=== PATIENT | female | born 1960 | race Caucasian/White ===

== ENCOUNTER → 2017-05-20 | Outpatient (CLI) | payer OTHER ==
--- NOTE | 2017-05-24 09:49 | MM ---
Reason for exam: screening (asymptomatic). Last mammogram was performed 1 year and 2 months ago. History: Patient is postmenopausal. Benign ultrasound-guided core biopsy of the left breast, September 27, 2002. Physical Findings: A clinical breast exam by your physician is recommended on an annual basis and results should be correlated with mammographic findings. MG 3D Screening Mammo W/Cad Bilateral CC and MLO view(s) were taken. Prior study comparison: March 24, 2016, bilateral MG 3d screening mammo w/cad. October 24, 2014, bilateral MG screening mammo w CAD. There are scattered fibroglandular densities. No significant changes when compared with prior studies. ASSESSMENT: Benign, BI-RAD 2 RECOMMENDATION: Routine screening mammogram of both breasts in 1 year.
== END | disposition home or self-care (01) ==
LOC: RADMAMWWP 13:02
PROVIDERS: ATTEND Obstetrics & Gynecology
DX: Z12.31 Encounter for screening mammogram for malignant neoplasm of breast (principal)
CPT/HCPCS: 77063; G0202

== ENCOUNTER → 2019-12-25 | Outpatient (CLI) | payer OTHER ==
[2019-12-25 12:15] LABS: Appearance,Urine Clear (Clear); Bacteria,Urine Occasional /hpf; Bilirubin,Urine Negative (Negative); Blood,Urine Negative (Negative); Color,Urine Light Yellow; Glucose,Urine (UA) Negative (Negative); Ketones,Urine Negative (Negative); Leukocyte Esterase,Urine Trace (Negative); Nitrite,Urine Negative (Negative); PH, Urine 6.5 (5.0-8.0); Protein,Urine Negative (Negative); RBC,Urine 3 /hpf (0-5); Specific Gravity,Urine 1.007 (1.001-1.035); Squamous Epithelial Cell,Urine <1 /hpf (0-4); Urobilinogen,Urine <2.0 mg/dL (<2.0); WBC,Urine 1 /hpf (0-5)
[2019-12-25 12:16] LABS: HCT 37.7 % (34.0-46.0); HGB 12.4 gm/dL (11.4-16.0); MCH 33.7 pg (25.0-35.0); MCHC 32.8 g/dL (31.0-37.0); MCV 102.5 fL (80.0-100.0); Macrocytosis Slight; Mean Platelet Volume 7.2; Platelet Count 325 k/uL (150-450); RBC 3.68 m/uL (3.80-5.40); RDW 12.5 % (11.5-15.5); WBC 5.5 k/uL (3.8-10.6)
[2019-12-25 12:19] LABS: ALT 11 U/L (4-34); AST 21 U/L (14-36); African American GFR (CKD) >90 (>60 ml/min/1.73 sqM); Albumin 4.4 g/dL (3.5-5.0); Alkaline Phosphatase 57 U/L (38-126); Anion Gap 8 mmol/L; Blood Urea Nitrogen 9 mg/dL (7-17); Calcium 9.3 mg/dL (8.4-10.2); Carbon Dioxide 25 mmol/L (22-30); Chloride 108 mmol/L (98-107); Glucose 98 mg/dL (74-99); INR 1.1 (<1.2); Non-African American GFR(CKD) >90 (>60 ml/min/1.73 sqM); Partial Thromboplastin Time 22.7 sec (22.0-30.0); Potassium 4.2 mmol/L (3.5-5.1); Prothrombin Time 11.2 sec (9.0-12.0); Sodium 141 mmol/L (137-145); Total Bilirubin 0.4 mg/dL (0.2-1.3); Total Protein 6.6 g/dL (6.3-8.2)
== END | disposition home or self-care (01) ==
LOC: LABPAT 11:27
PROVIDERS: ATTEND Orthopaedic Surgery
DX: Z01.818 Encounter for other preprocedural examination (principal); Z01.812 Encounter for preprocedural laboratory examination
CPT/HCPCS: 36415; 80053; 81001; 85027; 85610; 85730; 87070

== ENCOUNTER 2020-01-02 11:05 | Day surgery (SDC) | payer OTHER ==
[2019-12-29 08:47] VITALS: BMI 17.8
[~2020-01-02 11:05] MED LIST: ACETAMINOPHEN TAB 500 MG TAB PO ONE; DEXAMETHASONE SOD PHOSPHATE 10 MG/ML 1 ML VIAL IV ONE; GABAPENTIN 300 MG CAP PO ONE; HYDROcodone/APAP 5-325MG 1 EACH TAB PO PRN; HYDROmorphone 0.5 MG/0.5 ML SYRINGE IVP PRN; HYDROmorphone 1 MG/ML 1 ML SYRINGE IVP PRN; LIDOCAINE 1% (10MG/ML) FOR IV START INTRADERMA PRN; MAGNESIUM HYDROXIDE 2,400 MG/10 ML CUP PO PRN; MELOXICAM 7.5 MG TAB PO ONE; NALOXONE 0.4 MG/ML 1 ML VIAL IV PRN; ONDANSETRON 4 MG/2 ML VIAL IVP ONE; ONDANSETRON 4 MG/2 ML VIAL IVP PRN; TRANEXAMIC ACID 1,000 MG in SODIUM CHLORIDE 0.9% 100 ML IVPB ONE; diazePAM 5 MG TAB PO PRN; hydrOXYzine pamoate 25 MG CAP PO PRN
[2020-01-02] MEDS ORDERED: ACETAMINOPHEN TAB 500 MG TAB ONE (11:14)
[2020-01-02] MEDS ORDERED: ONDANSETRON 4 MG/2 ML VIAL ONE (11:14)
[2020-01-02] MEDS: LACTATED RINGERS 1,000 ML IV SCH (11:31)
[2020-01-02] MEDS ORDERED: MIDAZOLAM 2 MG/2 ML VIAL ONE (12:47)
[2020-01-02] MEDS ORDERED: PROPOFOL 10 MG/ML 20 ML VIAL IV ONE (12:47)
[2020-01-02] MEDS ORDERED: fentaNYL (PF) 50 MCG/ML 2 ML AMP ONE (12:47)
[2020-01-02] MEDS ORDERED: SODIUM CHLORIDE 0.9% IRRIG 1,000 ML BTL IRRIGATION ONE (12:47)
[2020-01-02] MEDS ORDERED: SODIUM CHLORIDE 0.9% 100 ML BAG ONE (12:47)
[2020-01-02] MEDS ORDERED: TRANEXAMIC ACID 1,000 MG/10 ML VIAL ONE (12:47)
[2020-01-02] MEDS ORDERED: HEPARIN SODIUM,PORCINE 10,000 UNIT/ML 1 ML VIAL ONE (12:47)
[2020-01-02] MEDS: ROPIVACAINE 246.25 MG, EPINEPHrine 0.5 MG, KETOROLAC 30 MG, cloNIDine HCL/PF 80 MCG, WA... MISCELLANE ONE ×10 (13:28→13:55)
--- NOTE | 2020-01-02 14:21 | P.OP ---
Date of Procedure: 01/02/20 Preoperative Diagnosis: Severe osteoarthritis left hip Postoperative Diagnosis: Severe osteoarthritis left hip Procedure(s) Performed: Left total hip arthroplasty with a direct anterior approach Implants: Gay and nephew Polarstem size 3 standard Gay & Nephew R3, 3 hole acetabular shell, 48 mm Gay & Nephew reflection 6.5 mm cancellus screw, 20 mm, 15 mm Gay & Nephew R3, XLPE 20 acetabular liner Gay & Nephew Oxinium femoral head 32 m, +0 All components were press-fit. The articulation is Oxinium on polyethylene. Anesthesia: spinal Surgeon: Bimal Saldaña Kinesiology Professor #1: Lulu Harris Estimated Blood Loss (ml): 50 Pathology: other (Femoral head) Condition: stable Disposition: PACU Indications for Procedure: After failure of conservative treatment we discussed the surgical and nonsurgical treatment options at length. Patient wishes to proceed with a total hip arthroplasty with a direct anterior approach. Complications specific to this procedure were discussed at length, including but not limited to infection, leg length discrepancy, dislocation, and nerve injury. Covid-19 was also discussed at length with the patient, and they are aware of the current policies and procedures. The patient was given the option of delaying surgery, but they elect to proceed knowing these risks. Patient is aware of all these complications and informed consent was obtained Operative Findings: The operative findings are consistent with severe osteoarthritis of the left hip Description of Procedure: Patient was seen and evaluated in the preoperative area, consent was reviewed, and the surgical site was marked with a skin marker. Patient was then brought to the operating room and given prophylactic antibiotics intravenously. 1 g of Tranexamic acid was also given. A spinal anesthetic was administered by the anesthesia department. The patient was then placed on the Mattaponi table with the bony prominences well-padded. The hip area was then prepped and draped in usual sterile fashion. A universal timeout was then performed, which confirmed the patient's name, surgical site, ALLERGIES, and procedure being performed. Next the incision site was located at 1 cm distal and 1 cm lateral to the anterior superior iliac spine. The skin and subcutaneous tissues were sharply incised. Incision was carefully dissected down to the fascia overlying the tensor fascia quinn muscle. This fascia was then incised in line with the incision. Next, using blunt finger dissection, the tensor fascia quinn muscle was dissected off its investing fascia. The muscle was then carefully retracted laterally with a cobra retractor over the lateral neck of the femur. Next, the circumflex vessels were identified and cauterized using the AquaMantis device. The anterior hip capsule was then exposed. The capsule was then opened and an inverted T fashion. Cobra retractors were then placed intracapsularly. The proximal femur was then visualized. The femoral neck was then osteotomized appropriate level above the lesser trochanter. Small amount of traction was placed with the Mattaponi table. A small wedge of bone was then removed from the remaining femoral head. Next, using a corkscrew femoral head was easily removed from the acetabulum. On gross visual inspection, the femoral head had complete loss of articular cartilage in multiple periarticular osteophytes. Attention was then turned to the acetabulum. the acetabulum was exposed and any remaining labrum was excised. Sequential reaming of the acetabulum was performed using fluoroscopic guidance. When the appropriate size was reached, a trial was then placed. The position and fit of the trial was checked with fluoroscopy. The trial was then removed. Then, using fluoroscopic guidance, the final implant was impacted at 20 of anteversion and 40 of abduction, and fully seated in the acetabulum. 2 screws were then placed in the acetabulum. Again fluoroscopy was used to check position of the screws. Next, the liner was then impacted, with a 20 elevated liner located in the anterior superior quadrant. Component locking was confirmed. Attention was then directed to the femur. With the aid of the Mattaponi table, the femur was externally rotated to approximately 130, extended, and abducted under the opposite leg. A side hook was then placed under the proximal femur, and the side hook elevator was used to elevate the proximal femur. Retractors were then placed. A capsular release was performed, as well as a release of the conjoined tendon, which afforded excellent visualization of the proximal femur. Next, a box osteotome was used to lateralize the proximal femur. A merchandise buyer was then used to locate the femoral canal. Sequential broaching was then performed with appropriate size which afforded excellent fixation in the proximal femur. A trial was then placed with appropriate head and neck, and the hip was gently reduced with the aid of the Mattaponi table. Fluoroscopy was then used to check position of the components, as well as to ensure equal leg lengths. The hip was then gently dislocated and the trials were then removed. Final implants were then impacted and the hip was again reduced. Final fluoroscopic x-rays confirmed that the components were in anatomic position, as well as equal leg lengths. The hip was also taken through range of motion, and found to be stable. The hip was then copiously irrigated with antibiotic solution with pulsatile lavage. The hip was then irrigated with Irrisept solution. The soft tissues were then injected with a ropivacaine solution, which consisted of 246.25 mg of ropivacaine, 0.5 mg of epinephrine, 30 mg of Toradol, 80 g of clonidine, and 48.45 mL of sterile water, for a total of 100 mL of fluid injected. A second dose of 1 g of Tranexamic acid was also given. the fascia was then closed with 2-0 strata fix suture. The subcutaneous tissue was closed with 3-0 Vicryl. The subcuticular tissue was closed with 3-0 strata fix suture. The skin was then closed with Dermabond glue and a sterile silver dressing. The patient was then transferred to the recovery room in stable condition. The assistant county attorney MARCELLE Verdin was required due to the complexity of surgery, and the need for skilled assistant oceanographer for positioning, draping, exposure, retraction, and closure of the wound.
--- NOTE | 2020-01-02 14:43 | FL ---
EXAMINATION TYPE: FL guidance operating room, XR Hip Limited LT DATE OF EXAM: 01/02/2020 COMPARISON: NONE HISTORY: Left hip arthroplasty TECHNIQUE: Fluoroscopy. FINDINGS: Fluoroscopic guidance was provided during procedure performed by Dr. Saldaña. A total of 35 seconds of fluoroscopic time was utilized during the procedure and 2 spot images was acquired. Pl ease see operative note for additional details. IMPRESSION: As Above.
--- NOTE | 2020-01-02 15:07 | XR ---
Limited left hip HISTORY: Status post left hip arthroplasty Single frontal view of the left hip Patient is status post left hip arthroplasty. There is anatomic alignment. Lucency is present in the soft tissues. IMPRESSION: Orthopedic follow-up.
[2020-01-02] MEDS: HYDROmorphone 0.5 MG/0.5 ML SYRINGE IVP PRN ×2 (15:30→15:39)
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
[2020-01-02] MEDS: HYDROcodone/APAP 5-325MG 1 EACH TAB PO PRN (19:23)
[2020-01-02] MEDS: SODIUM CHLORIDE 0.9% 1,000 ML IV SCH ×2 (20:50→21:03)
[2020-01-02] MEDS: ASPIRIN 325 MG TAB PO SCH (20:51)
[2020-01-02] MEDS ORDERED: SENNOSIDES-DOCUSATE SODIUM 1 EACH TAB PO SCH (21:00)
[2020-01-02] MEDS: NICOTINE 14MG/24HR PATCH TRANSDERM SCH (21:49)
[2020-01-03 01:13] VITALS: PULSE 76; TEMP 97.9
[2020-01-03] MEDS: HYDROcodone/APAP 5-325MG 1 EACH TAB PO PRN ×2 (01:28→07:32)
[2020-01-03 04:14] VITALS: RESP 16
[2020-01-03] MEDS: LACTATED RINGERS 1,000 ML IV SCH (06:02)
[2020-01-03] MEDS ORDERED: PANTOPRAZOLE 40 MG TABLET PO SCH (07:30)
[2020-01-03] MEDS: ASPIRIN 325 MG TAB PO SCH (07:34)
[2020-01-03 08:00] VITALS: BP 127/65
[2020-01-03 08:28] LABS: Basophils % (A) 0 %; Eosinophils # (A) 0.1 k/uL (0-0.7); Eosinophils % (A) 1 %; HCT 30.3 % (34.0-46.0); Lymphocytes # (A) 1.4 k/uL (1.0-4.8); Lymphocytes % (A) 14 %; MCH 33.6 pg (25.0-35.0); MCHC 32.2 g/dL (31.0-37.0); MCV 104.4 fL (80.0-100.0); Macrocytosis Slight; Mean Platelet Volume 6.9; Monocytes # (A) 0.5 k/uL (0-1.0); Monocytes % (A) 6 %; Neutrophils # (A) 7.4 k/uL (1.3-7.7); Neutrophils % (A) 78 %; Platelet Count 364 k/uL (150-450); RDW 12.8 % (11.5-15.5); WBC 9.5 k/uL (3.8-10.6)
[2020-01-03 08:32] LABS: HGB 9.8 gm/dL (11.4-16.0)
[2020-01-03] MEDS: NICOTINE 14MG/24HR PATCH TRANSDERM SCH (08:43)
[2020-01-03] MEDS ORDERED: amLODIPine 10 MG TAB PO SCH (09:00)
[2020-01-03] MEDS ORDERED: FENOFIBRATE 160 MG TAB PO SCH (09:00)
[2020-01-03] MEDS ORDERED: MELOXICAM 7.5 MG TAB PO SCH (09:00)
[2020-01-03] MEDS ORDERED: METOPROLOL SUCCINATE (ER) 100 MG TAB.ER.24H PO SCH (09:00)
[2020-01-03] MEDS ORDERED: ATORVASTATIN 10 MG TAB PO SCH (09:00)
--- NOTE | 2020-01-03 09:30 | P.DS ---
Providers Expected date of discharge: 01/03/20 Attending physician: Bimal Saldaña Consults: 01/02/20 06:55 Consult Physician Routine Consulting Provider: Antonietta Johansen Consult Reason/Comments: medical management Do you want consulting provider notified?: Yes Primary care physician: Mg Barger, DO - Discharge Diagnosis(es) (1) Osteoarthritis of left hip Current Visit: Yes Status: Acute (2) Status post total hip replacement, left Current Visit: Yes Status: Acute Hospital Course: This is a 59-year-old female with known history of degenerative arthritis of the left hip. The patient presents for evaluation. After discussion and consideration patient elects to proceed with total hip arthroplasty. The patient is seen preoperatively by Dr. Saldaña and medically cleared for surgery by their primary care physician. Patient is admitted to [facility] on 01/02/2020 for total hip arthroplasty. The procedures performed without complication or sequelae. The patient is doing well postoperatively. Labs and vital signs are stable on day of discharge. Patient does have some weakness in the left ankle and an AFO is ordered. Patient has been able to ambulate with physical therapy. On day of discharge patient's hip incision is healing well. There is minimal erythema. There is no drainage noted at this time. There is minimal soft tissue swelling to the hip and thigh. Patient has some weakness with dorsifl exion of the left ankle. Sensation is intact over the left foot and ankle. Patient is able to actively dorsiflex the toes of the left foot. Patient is able to actively plantarflex the left foot. Calf is soft and nontender to palpation. Neurovascular status to the left lower extremity is intact. Patient is discharged home in good condition. Opioid start talking form is reviewed and signed at patient bedside. Please see med rec for accurate list of home medications. Plan - Discharge Summary Discharge Rx Participant: Yes New Discharge Prescriptions: New Aspirin 325 mg PO BID #60 tab HYDROcodone/APAP 5-325MG [[place] 5-325] 1 - 2 tab PO Q6HR PRN #48 tab PRN Reason: Pain Sennosides [Senokot] 2 tab PO DAILY PRN #60 tablet PRN Reason: Constipation No Action Acetaminophen/Diphenhydramine [Tylenol PM 500-25mg] 1 tab PO HS PRN PRN Reason: Insomnia amLODIPine [Norvasc] 10 mg PO DAILY Atorvastatin [Lipitor] 10 mg PO DAILY Venlafaxine HCl [Effexor] 75 mg PO DAILY Metoprolol Succinate [Toprol XL] 100 mg PO DAILY Ibuprofen [Motrin] 800 mg PO Q8H PRN PRN Reason: Pain Potassium 595 mg PO DAILY Pantoprazole [Protonix] 40 mg PO DAILY Fenofibrate 150 mg PO DAILY Acetaminophen [Tylenol Arthritis] 650 mg PO DIRECTED PRN PRN Reason: Pain Discharge Medication List Acetaminophen [Tylenol Arthritis] 650 mg PO DIRECTED PRN 12/29/19 [History] Acetaminophen/Diphenhydramine [Tylenol PM 500-25mg] 1 tab PO HS PRN 12/29/19 [History] Atorvastatin [Lipitor] 10 mg PO DAILY 12/29/19 [History] Fenofibrate 150 mg PO DAILY 12/29/19 [History] Ibuprofen [Motrin] 800 mg PO Q8H PRN 12/29/19 [History] Metoprolol Succinate [Toprol XL] 100 mg PO DAILY 12/29/19 [History] Pantoprazole [Protonix] 40 mg PO DAILY 12/29/19 [History] Potassium 595 mg PO DAILY 12/29/19 [History] Venlafaxine HCl [Effexor] 75 mg PO DAILY 12/29/19 [History] amLODIPine [Norvasc] 10 mg PO DAILY 12/29/19 [History] Aspirin 325 mg PO BID #60 tab 01/03/20 [Rx] HYDROcodone/APAP 5-325MG [[place] 5-325] 1 - 2 tab PO Q6HR PRN #48 tab 01/03/20 [R x] Sennosides [Senokot] 2 tab PO DAILY PRN #60 tablet 01/03/20 [Rx] Follow up Appointment(s)/Referral(s): Bimal Saldaña DO [Doctor of Osteopathic Medicine] - 2 Weeks Activity/Diet/Wound Care/Special Instructions: Weightbearing as tolerated with walker. Leave dressing intact. Dressing may be removed by home care nurse or by patient in 10 days. May shower with dressing on. Recommend use of compression stockings daily until follow up to help prevent swelling and blood clots. May remove at night before sleeping. Please follow-up with [facility] in 2 weeks and call with any questions or concerns, . Discharge Disposition: HOME WITH HOME HEALTH SERVICES
--- NOTE | 2020-01-03 10:41 | P.PN ---
Subjective Progress Note Date: 01/03/20 Patient is doing well today. No acute events overnight. She is looking forward to be discharged home. Objective - Vital Signs Vital signs: Vital Signs Temp 97.9 F 01/03/20 07:00 Pulse 76 01/03/20 07:25 Resp 16 01/03/20 07:25 BP 127/65 01/03/20 07:00 Pulse Ox 95 01/03/20 07:00 Intake & Output 01/02/20 01/03/20 01/03/20 18:59 06:59 18:59 Intake Total 950 480 Output Total 53 Balance 897 480 Weight 47.174 kg Intake: IV 950 Intake, IV Titration 480 Amount Sodium Chloride 0.9% 1, 480 000 ml @ 60 mls/hr IV . [id number] ENEDINA Rx#:[id number] Output: Estimated Blood Loss 53 Other: Voiding Method Toilet Toilet # Voids 1 1 - Exam General: The patient is awake and alert, in no distress Eye: there is normal conjunctiva bilaterally. Neck: The neck is supple, there is no JVD. Cardiovascular: Normal S1-S2, no S3-S4, no murmurs. Respiratory: Lungs clear to auscultation bilaterally Gastrointestinal: Abdomen is soft, nontender Musculoskeletal: There is no pedal edema. Neurological:. Speech is normal. Skin: Skin is warm and dry - Labs CBC & Chem 7: 01/03/20 07:47 Labs: Abnormal Lab Results - Last 24 Hours (Table) 01/03/20 Range/Units 07:47 RBC 2.90 L (3.80-5.40) m/uL Hgb 9.8 L D (11.4-16.0) gm/dL Hct 30.3 L (34.0-46.0) % MCV 104.4 H (80.0-100.0) fL Assessment and Plan Assessment: Hypertension -Continue with home amlodipine Hyperlipidemia -Continue with home Lipitor dose Status post left total hip replacement -Management including pain control and DVT prophylaxis as per the surgical service
--- NOTE | 2020-01-03 10:57 | P.PN ---
Progress Note - Text This is a pleasant 59-year-old female past medical history significant for COPD hypertension and dyslipidemia. She underwent a Lexiscan stress test that was negative for ischemia with normal LV systolic function. She underwent elective left hip surgical repair yesterday. She is seen and examined sitting up in the chair in no acute distress. She has no symptoms of chest pain, shortness of breath, dizziness or palpitations. Blood pressure 127/65 heart rate 100 afebrile maintaining oxygen saturation on room air. She is being discharged home from an orthopedic standpoint today. Follow-up in the office with Dr. Muir and next regularly scheduled appointment.
== END 2020-01-03 12:01 | disposition home health service (06) ==
LOC: OR 11:05 → 4SSUR 15:37 → OR 01-03 12:01
PROVIDERS: ATTEND Orthopaedic Surgery
DX: M16.12 Unilateral primary osteoarthritis, left hip (principal); I10 Essential (primary) hypertension; J44.9 Chronic obstructive pulmonary disease, unspecified; E78.5 Hyperlipidemia, unspecified; K21.9 Gastro-esophageal reflux disease without esophagitis; E78.00 Pure hypercholesterolemia, unspecified; F17.210 Nicotine dependence, cigarettes, uncomplicated; Z87.19 Personal history of other diseases of the digestive system; Z80.8 Family history of malignant neoplasm of other organs or systems; Z79.1 Long term (current) use of non-steroidal anti-inflammatories (NSAID); Z79.899 Other long term (current) drug therapy
CPT/HCPCS: 97110; 97161; 97535; 97165; 86891; 86900; 86901; 85025; 86850; 88300; 73501 ×2; 27130; C1776; S4990 ×2; J0171; J1100; J0690 ×2; J2405; J1885; J1170 ×2; J2795; J0735

== ENCOUNTER 2020-01-31 19:31 | Observation (INO) | payer OTHER ==
[2020-01-31] MEDS: HYDROmorphone 0.5 MG/0.5 ML SYRINGE IVP STA (19:49)
[2020-01-31] MEDS ORDERED: NICOTINE 21MG/24HR PATCH TRANSDERM STA (19:52)
[2020-01-31] MEDS ORDERED: NALOXONE 0.4 MG/ML 1 ML VIAL IV PRN (20:13)
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
--- NOTE | 2020-01-31 20:24 | XR ---
EXAMINATION TYPE: XR Hip Limited LT DATE OF EXAM: 01/31/2020 COMPARISON: 01/02/2020 HISTORY: Pain, dislocation TECHNIQUE: AP left hip FINDINGS: The femoral component is dislocated from the acetabular component at the left hip. No acute fractures are evident. IMPRESSION: 1. Dislocation femoral prosthesis from the acetabular component.
[2020-01-31 21:07] LABS: Glucose 97 mg/dL (74-99); Potassium 3.3 mmol/L (3.5-5.1); Sodium 137 mmol/L (137-145)
[2020-01-31 21:08] LABS: ALT 9 U/L (4-34); AST 28 U/L (14-36); African American GFR (CKD) >90 (>60 ml/min/1.73 sqM); Albumin 3.7 g/dL (3.5-5.0); Alkaline Phosphatase 57 U/L (38-126); Anion Gap 7 mmol/L; Blood Urea Nitrogen 7 mg/dL (7-17); Calcium 9.3 mg/dL (8.4-10.2); Carbon Dioxide 23 mmol/L (22-30); Chloride 107 mmol/L (98-107); Non-African American GFR(CKD) >90 (>60 ml/min/1.73 sqM); Total Bilirubin 0.7 mg/dL (0.2-1.3)
[2020-01-31 21:09] LABS: Basophils % (A) 1 %; Eosinophils # (A) 0.2 k/uL (0-0.7); Eosinophils % (A) 3 %; HCT 34.5 % (34.0-46.0); HGB 10.9 gm/dL (11.4-16.0); Lymphocytes # (A) 1.5 k/uL (1.0-4.8); Lymphocytes % (A) 22 %; MCH 33.1 pg (25.0-35.0); MCHC 31.6 g/dL (31.0-37.0); MCV 104.9 fL (80.0-100.0); Macrocytosis Slight; Mean Platelet Volume 7.4; Monocytes # (A) 0.4 k/uL (0-1.0); Monocytes % (A) 6 %; Neutrophils # (A) 4.5 k/uL (1.3-7.7); Neutrophils % (A) 67 %; Platelet Count 494 k/uL (150-450); RBC 3.29 m/uL (3.80-5.40); RDW 13.2 % (11.5-15.5); WBC 6.7 k/uL (3.8-10.6)
[2020-01-31] MEDS: SODIUM CHLORIDE 0.9% 1,000 ML IV SCH ×2 (21:55→21:56)
[2020-01-31] MEDS ORDERED: POTASSIUM CHLORIDE ER 10 MEQ TAB.ER.PRT PO STA (22:00)
[2020-01-31] MEDS: HYDROmorphone 0.5 MG/0.5 ML SYRINGE IVP PRN (23:56)
[2020-02-01] MEDS: HYDROmorphone 0.5 MG/0.5 ML SYRINGE IVP PRN ×4 (03:01→11:46)
[2020-02-01] MEDS: SODIUM CHLORIDE 0.9% 1,000 ML IV SCH ×2 (08:18→17:02)
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
[2020-02-01] MEDS ORDERED: METOPROLOL SUCCINATE (ER) 100 MG TAB.ER.24H PO SCH (09:00)
[2020-02-01] MEDS ORDERED: amLODIPine 10 MG TAB PO SCH (09:00)
[2020-02-01] MEDS ORDERED: ATORVASTATIN 10 MG TAB PO SCH (09:00)
[2020-02-01 11:11] VITALS: BMI 17.8
[2020-02-01] MEDS ORDERED: IV FLUID CONTINUATION 1,000 ML IV ONE (12:36)
[2020-02-01] MEDS ORDERED: KETOROLAC 15 MG/ML 1 ML VIAL ONE (12:51)
[2020-02-01] MEDS ORDERED: fentaNYL (PF) 50 MCG/ML 2 ML AMP ONE (12:51)
[2020-02-01] MEDS ORDERED: SUCCINYLCHOLINE CHLORIDE 100 MG/5 ML SYR IV ONE (12:51)
[2020-02-01] MEDS ORDERED: ROCURONIUM 10 MG/ML (5 ML VIAL) IV ONE (12:51)
[2020-02-01] MEDS ORDERED: MIDAZOLAM 2 MG/2 ML VIAL ONE (12:51)
[2020-02-01] MEDS ORDERED: GLYCOPYRROLATE 0.2 MG/ML 2 ML VIAL ONE (12:51)
[2020-02-01] MEDS ORDERED: NEOSTIGMINE 1 MG/ML 10 ML VIAL ONE (12:51)
[2020-02-01] MEDS ORDERED: LIDOCAINE 1% INJ 10MG/ML (20 ML MDV) ONE (12:51)
[2020-02-01] MEDS ORDERED: PROPOFOL 10 MG/ML 20 ML VIAL IV ONE (12:51)
[2020-02-01] MEDS ORDERED: LACTATED RINGERS 1,000 ML IV ONE (13:29)
--- NOTE | 2020-02-01 13:31 | P.OP ---
Date of Procedure: 02/01/20 Preoperative Diagnosis: posterior dislocation left total hip arthroplasty Postoperative Diagnosis: posterior dislocation left total hip arthroplasty Procedure(s) Performed: close reduction left total hip Anesthesia: CHAY Surgeon: Bimal Saldaña Cdl Service Technician #1: Lulu Harris Estimated Blood Loss (ml): 0 Pathology: none sent Condition: stable Disposition: PACU Indications for Procedure: this is a 59 year-old female that had a total hip arthroplasty performed approximately 4 weeks ago.she was doing very well but apparently slipped when getting into bed and felt pain in her left hip. She initially thought she just bruised her hip and then after a couple days went to [facility] for an x-ray. They diagnosed her with a dislocation of the left total hip arthroplasty. An attempted closed reduction was done at [facility], but was unsuccessful. I spoke to the emergency room physician and asked the doctor to transfer the patient to [facility] to be under my care. I discussed surgical treatment options with her at length and she is aware of the potential complications never recommended a close reduction under general anesthetic in the operating room. Informed consent was obtained. Operative Findings: the operative findings are consistent with a posterior dislocation of a left total hip arthroplasty Description of Procedure: the patient was seen in the preoperative area and the consent was reviewed. The operative leg was marked with a skin marker. Patient was then brought to the operating room and placed on the radiolucent operating room table. A general anesthetic was administered by the anesthesia department. A universal timeout was then performed which confirmed the patient's name, surgical site, ALLERGIES, and consent. After adequate anesthesia was administered. A close reduction was performed with fluoroscopic guidance. Hip reduction was confirmed with the x-ray. After reduction the hip was taken through a range of motion and found to be stable. The patient was then placed in a knee immobilizer and transferred to recovery room stable condition. Asst. uLlu Harris was required due the complexity of the reduction and the need for skilled employment assistant during the reduction.
[2020-02-01 13:35] VITALS: RESP 16
--- NOTE | 2020-02-01 13:46 | FL ---
EXAMINATION TYPE: FL guidance operating room, XR Hip Limited LT DATE OF EXAM: 02/01/2020 COMPARISON: Left hip radiograph 01/31/2020 HISTORY: Closed reduction of left hip TECHNIQUE: Fluoroscopy. FINDINGS: Fluoroscopic guidance was provided during procedure performed by Dr. Saldaña. A total of 28 seconds of fluoroscopic time was utilized during the procedure and 1 spot [address] acquired[address] Pl ease see operative report for additional details. IMPRESSION: As Above.
[2020-02-01] MEDS: HYDROmorphone 0.5 MG/0.5 ML SYRINGE IVP STA (13:52)
[2020-02-01 14:57] VITALS: PULSE 80; TEMP 98.1
--- NOTE | 2020-02-01 16:38 | P.DS ---
Providers Date of admission: 01/31/20 20:27 Expected date of discharge: 02/01/20 Attending physician: Bimal Saldaña Primary care physician: Mg Barger, DO - Discharge Diagnosis(es) (1) Dislocation of internal left hip prosthesis Current Visit: Yes Status: Acute (2) Status post total hip replacement, left Current Visit: No Status: Acute Hospital Course: This is a 59 year-old female who was transferred from [facility] to [facility] for left hip dislocation. Patient is status post direct anterior approach left total hip arthroplasty on 01/02/2020. After discussion and consideration patient consents to proceed with closed reduction of the left hip. The patient is seen preoperatively by Dr. Saldaña. Patient is admitted to [facility] on 01/31/2020 and closed reduction of the left hip is performed on 02/01/2020 in the operating room. The procedure is performed without complication or sequelae. The patient is doing well postoperatively. Labs and vital signs are stable on day of discharge. On day of discharge patient's hip incision is healing well. There is minimal erythema. There is no drainage noted at this time. There is minimal soft tissue swelling to the hip and thigh. Patient has full foot and ankle motion without difficulty or pain. Neurovascular status to the left lower extremity is intact. Patient is discharged home in good condition. Please see med rec for accurate list of home medications. Patient Condition at Discharge: Stable Plan - Discharge Summary New Discharge Prescriptions: New HYDROcodone/APAP 5-325MG [[place] 5-325] 1 tab PO Q6HR PRN #30 tab PRN Reason: Pain Sennosides [Senokot] 2 tab PO DAILY PRN #60 tablet PRN Reason: Constipation No Action amLODIPine [Norvasc] 10 mg PO DAILY Atorvastatin [Lipitor] 10 mg PO DAILY Venlafaxine HCl [Effexor] 75 mg PO DAILY Metoprolol Succinate [Toprol XL] 100 mg PO DAILY Ibuprofen [Motrin] 800 mg PO Q8H PRN PRN Reason: Pain Pantoprazole [Protonix] 40 mg PO DAILY Aspirin 325 mg PO DAILY Fenofibrate Nanocrystallized [Fenofibrate] 145 mg PO DAILY Discharge Medication List Atorvastatin [Lipitor] 10 mg PO DAILY 12/29/19 [History] Ibuprofen [Motrin] 800 mg PO Q8H PRN 12/29/19 [History] Metoprolol Succinate [Toprol XL] 100 mg PO DAILY 12/29/19 [History] Pantoprazole [Protonix] 40 mg PO DAILY 12/29/19 [History] Venlafaxine HCl [Effexor] 75 mg PO DAILY 12/29/19 [History] amLODIPine [Norvasc] 10 mg PO DAILY 12/29/19 [History] Aspirin 325 mg PO DAILY 01/31/20 [History] Fenofibrate Nanocrystallized [Fenofibrate] 145 mg PO DAILY 01/31/20 [History] HYDROcodone/APAP 5-325MG [[place] 5-325] 1 tab PO Q6HR PRN #30 tab 02/01/20 [Rx] Sennosides [Senokot] 2 tab PO DAILY PRN #60 tablet 02/01/20 [Rx] Follow up Appointment(s)/Referral(s): Bimal Saldaña DO [Doctor of Osteopathic Medicine] - 02/08/20 2:15 pm Mg Barger DO [Primary Care Provider] - 02/03/20 10:30 am Activity/Diet/Wound Care/Special Instructions: Maintain knee immobilizer. Weightbearing as tolerated. Follow up with [facility] in one week. [phone]. Discharge Disposition: HOME SELF-CARE
[2020-02-01 16:47] VITALS: BP 136/79
== END 2020-02-01 17:36 | disposition home or self-care (01) ==
LOC: EC 19:31 → 4SSUR 20:27 → INTOOBSV 20:27 → UNDODISIN 02-01 17:36
PROVIDERS: ADMIT Orthopaedic Surgery; ATTEND Orthopaedic Surgery
PROC: 0SWBXJZ Revision of Synthetic Substitute in Left Hip Joint, External Approach (ICD-10-PCS; principal; 2020-02-01 13:00)
DX: T84.021A Dislocation of internal left hip prosthesis, initial encounter (principal); I10 Essential (primary) hypertension; E78.5 Hyperlipidemia, unspecified; K21.9 Gastro-esophageal reflux disease without esophagitis; M54.30 Sciatica, unspecified side; F17.200 Nicotine dependence, unspecified, uncomplicated; Z79.82 Long term (current) use of aspirin; Z79.1 Long term (current) use of non-steroidal anti-inflammatories (NSAID); Z79.899 Other long term (current) drug therapy; Z98.890 Other specified postprocedural states; Z87.19 Personal history of other diseases of the digestive system; Z98.891 History of uterine scar from previous surgery; W06.XXXA Fall from bed, initial encounter; Y79.2 Prosthetic and other implants, materials and accessory orthopedic devices associated with adverse incidents; Z80.8 Family history of malignant neoplasm of other organs or systems
CPT/HCPCS: 27266; 96376; 96374; 99285; 80053; 85025; 73501 ×2; G0378 ×2; S4990; J2250; J2710; J2001; J3010; J1885; J0330; J2704; J1170 ×2; 99284

== ENCOUNTER 2020-02-09 05:11 | Observation (INO) | payer OTHER ==
[2020-02-09] MEDS ORDERED: MORPHINE SULFATE 4 MG/ML SYRINGE IM STA (05:27)
--- NOTE | 2020-02-09 05:53 | XR ---
EXAMINATION TYPE: XR femur LT DATE OF EXAM: 02/09/2020 COMPARISON: 01/31/2020 HISTORY: Dislocation TECHNIQUE: 4 views FINDINGS: There is a superior lateral dislocation of the prosthetic femoral head. Position is the danita e as old exam of 01/31/2020. I see no fracture line. The visualized pelvis is intact. Knee joint is in tact. IMPRESSION: Dislocated prosthetic left hip joint. No fracture seen.
[2020-02-09] MEDS ORDERED: ETOMIDATE 2 MG/ML 10 ML VIAL IVP STA (05:55)
[2020-02-09] MEDS: PROPOFOL 10 MG/ML 20 ML VIAL IV ONE ×4 (06:26→07:20)
[2020-02-09] MEDS ORDERED: MORPHINE SULFATE 4 MG/ML SYRINGE IV STA (06:36)
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
--- NOTE | 2020-02-09 07:35 | XR ---
EXAMINATION TYPE: XR Hip Limited LT DATE OF EXAM: 02/09/2020 COMPARISON: NONE HISTORY: 5-year-old female postreduction exam TECHNIQUE: Single AP view FINDINGS: Interval satisfactory reduction of the prosthetic left hip. The acetabular and femoral stem component s of the prosthesis appear well seated without prostatic fracture. Alignment grossly anatomic. IMPRESSION: Interval satisfactory reduction of the prosthetic left hip.
[2020-02-09] MEDS ORDERED: SODIUM CHLORIDE 0.9% 1,000 ML IV ONE (07:41)
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
[2020-02-09] MEDS ORDERED: HYDROcodone/APAP 7.5-325MG 1 EACH TAB PO PRN ×2 (08:46)
[2020-02-09] MEDS ORDERED: hydrOXYzine pamoate 25 MG CAP PO PRN (08:46)
[2020-02-09] MEDS ORDERED: MAGNESIUM HYDROXIDE 2,400 MG/10 ML CUP PO PRN (08:46)
[2020-02-09] MEDS ORDERED: diazePAM 5 MG TAB PO PRN (08:46)
[2020-02-09] MEDS ORDERED: NALOXONE 0.4 MG/ML 1 ML VIAL IV PRN (08:46)
[2020-02-09] MEDS ORDERED: ONDANSETRON 4 MG/2 ML VIAL IVP PRN (08:46)
[2020-02-09 08:51] VITALS: BP 135/79; PULSE 86; RESP 16; TEMP 98.7
[2020-02-09] MEDS ORDERED: SODIUM CHLORIDE 0.9% 1,000 ML IV SCH (09:00)
[2020-02-09] MEDS ORDERED: MELOXICAM 7.5 MG TAB PO SCH (09:00)
[2020-02-09] MEDS ORDERED: SENNOSIDES-DOCUSATE SODIUM 1 EACH TAB PO SCH (21:00)
== END 2020-02-09 16:55 | disposition home or self-care (01) ==
LOC: EC 05:11 → 4SSUR 07:41
PROVIDERS: ADMIT Orthopaedic Surgery; ATTEND Orthopaedic Surgery
DX: T84.021A Dislocation of internal left hip prosthesis, initial encounter (principal); K21.9 Gastro-esophageal reflux disease without esophagitis; I10 Essential (primary) hypertension; M54.30 Sciatica, unspecified side; Z87.828 Personal history of other (healed) physical injury and trauma; Z87.19 Personal history of other diseases of the digestive system; F17.200 Nicotine dependence, unspecified, uncomplicated; X50.9XXA Other and unspecified overexertion or strenuous movements or postures, initial encounter; Z96.642 Presence of left artificial hip joint; Z79.899 Other long term (current) drug therapy; Z79.82 Long term (current) use of aspirin; Z79.1 Long term (current) use of non-steroidal anti-inflammatories (NSAID); Z79.891 Long term (current) use of opiate analgesic; Z91.81 History of falling; Z80.8 Family history of malignant neoplasm of other organs or systems
CPT/HCPCS: 27265 ×2; 99284; 99152; 73501; 73552; G0378; J2270; J2704

== ENCOUNTER 2020-03-08 16:41 | Inpatient (IN) | payer OTHER ==
[2020-03-08] MEDS ORDERED: MORPHINE SULFATE 4 MG/ML SYRINGE IV STA (16:56)
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
[2020-03-08] MEDS ORDERED: PROPOFOL 10 MG/ML 20 ML VIAL IV ONE ×2 (17:52→18:41)
[2020-03-08] MEDS ORDERED: HYDROmorphone 0.5 MG/0.5 ML SYRINGE IVP STA ×2 (18:36→19:55)
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
[2020-03-08 18:54] LABS: Basophils % (A) 1 %; Eosinophils # (A) 0.2 k/uL (0-0.7); Eosinophils % (A) 4 %; HCT 37.8 % (34.0-46.0); Lymphocytes # (A) 1.5 k/uL (1.0-4.8); Lymphocytes % (A) 29 %; MCH 32.8 pg (25.0-35.0); MCHC 31.6 g/dL (31.0-37.0); MCV 103.7 fL (80.0-100.0); Macrocytosis Slight; Mean Platelet Volume 6.7; Monocytes # (A) 0.2 k/uL (0-1.0); Monocytes % (A) 4 %; Neutrophils # (A) 3.3 k/uL (1.3-7.7); Neutrophils % (A) 62 %; Platelet Count 414 k/uL (150-450); RBC 3.65 m/uL (3.80-5.40); RDW 12.6 % (11.5-15.5); WBC 5.3 k/uL (3.8-10.6)
[2020-03-08 19:02] LABS: Potassium 4.1 mmol/L (3.5-5.1)
[2020-03-08 19:03] LABS: ALT 15 U/L (4-34); AST 34 U/L (14-36); African American GFR (CKD) >90 (>60 ml/min/1.73 sqM); Albumin 4.2 g/dL (3.5-5.0); Alkaline Phosphatase 55 U/L (38-126); Anion Gap 6 mmol/L; Blood Urea Nitrogen 11 mg/dL (7-17); Carbon Dioxide 21 mmol/L (22-30); Chloride 115 mmol/L (98-107); Glucose 91 mg/dL (74-99); Non-African American GFR(CKD) >90 (>60 ml/min/1.73 sqM); Sodium 142 mmol/L (137-145); Total Bilirubin 0.3 mg/dL (0.2-1.3); Total Protein 6.7 g/dL (6.3-8.2)
[2020-03-08] MEDS ORDERED: NICOTINE 21MG/24HR PATCH TRANSDERM STA (19:04)
[2020-03-08 19:07] LABS: Alcohol 203 mg/dL
[2020-03-08] MEDS ORDERED: THIAMINE 100 MG/ML 2 ML VIAL IM STA (19:39)
[2020-03-08] MEDS ORDERED: LORazepam 2 MG/ML INJ IV PRN ×3 (19:39)
[2020-03-08] MEDS: SODIUM CHLORIDE 0.9% 1,000 ML IV SCH (19:59)
[2020-03-08] MEDS ORDERED: IBUPROFEN 400 MG TAB PO PRN (20:39)
[2020-03-08] MEDS ORDERED: NALOXONE 0.4 MG/ML 1 ML VIAL IV PRN (20:39)
[2020-03-08] MEDS: HYDROmorphone 1 MG/ML 1 ML SYRINGE IVP PRN (22:00)
--- NOTE | 2020-03-08 23:49 | ED ---
Medical Decision Making - Lab Data Result diagrams: 03/08/20 18:43 03/08/20 18:43 Lab Results 03/08/20 03/08/20 Range/Units 18:43 18:43 WBC 5.3 (3.8-10.6) k/uL RBC 3.65 L (3.80-5.40) m/uL Hgb 12.0 (11.4-16.0) gm/dL Hct 37.8 (34.0-46.0) % MCV 103.7 H (80.0-100.0) fL MCH 32.8 (25.0-35.0) pg MCHC 31.6 (31.0-37.0) g/dL RDW 12.6 (11.5-15.5) % Plt Count 414 (150-450) k/uL Neutrophils % 62 % Lymphocytes % 29 % Monocytes % 4 % Eosinophils % 4 % Basophils % 1 % Neutrophils # 3.3 (1.3-7.7) k/uL Lymphocytes # 1.5 (1.0-4.8) k/uL Monocytes # 0.2 (0-1.0) k/uL Eosinophils # 0.2 (0-0.7) k/uL Basophils # 0.0 (0-0.2) k/uL Macrocytosis Slight Sodium 142 (137-145) mmol/L Potassium 4.1 (3.5-5.1) mmol/L Chloride 115 H (98-107) mmol/L Carbon Dioxide 21 L (22-30) mmol/L Anion Gap 6 mmol/L BUN 11 (7-17) mg/dL Creatinine 0.53 (0.52-1.04) mg/dL Est GFR (CKD-EPI)AfAm >90 (>60 ml/min/1.73 sqM) Est GFR (CKD-EPI)NonAf >90 (>60 ml/min/1.73 sqM) Glucose 91 (74-99) mg/dL Calcium 9.0 (8.4-10.2) mg/dL Total Bilirubin 0.3 (0.2-1.3) mg/dL AST 34 (14-36) U/L ALT 15 (4-34) U/L Alkaline Phosphatase 55 (38-126) U/L Total Protein 6.7 (6.3-8.2) g/dL Albumin 4.2 (3.5-5.0) g/dL Serum Alcohol 203 H* mg/dL Disposition Clinical Impression: Hip dislocation, left Disposition: ADMITTED IP TO THIS HOSP Condition: Fair Is patient prescribed a controlled substance at d/c from ED?: No Procedures - Pana Protocol (Time Out) Performing Provider: Desean Cummins Nurse: Razia Nicole Respiratory Therapist: Johanna Goldman Patient Identification (2 identifiers required): Chart, Verbal, Arm Band, Name, Birthdate, Medical Record Number Patient/Legal Inspector Missile has Confirmed: Identity, Site, Procedure, Consent Site: left hip Site Marked: Yes Site Verified With Patient/Guardian: Yes Final Confirmation: Procedure, Site - Orthopedic Joint Reduction Joint #1 Consent Obtained: verbal consent, written consent Side: left Joint Reduction Location: hip Analgesia: procedural sedation Technique Used: traction/counter-traction Post-Reduction Neuro Exam: intact Post-Reduction Vascular Exam: intact Additional Comments: reduction unsuccessful
[2020-03-09] MEDS: ACETAMINOPHEN TAB 325 MG TAB PO PRN ×2 (00:27→06:08)
[2020-03-09] MEDS: HYDROmorphone 1 MG/ML 1 ML SYRINGE IVP PRN ×4 (04:00→21:10)
[2020-03-09] MEDS: SODIUM CHLORIDE 0.9% 1,000 ML IV SCH ×2 (06:06→15:08)
[2020-03-09] MEDS: THIAMINE 100 MG TAB PO SCH ×2 (08:46→15:08)
[2020-03-09] MEDS: METOPROLOL SUCCINATE (ER) 100 MG TAB.ER.24H PO SCH (11:55)
[2020-03-09] MEDS: PANTOPRAZOLE 40 MG TABLET PO SCH (11:55)
[2020-03-09] MEDS: HYDROcodone/APAP 5-325MG 1 EACH TAB PO PRN ×3 (11:57→23:03)
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
[2020-03-09 12:31] VITALS: BMI 18.0
[2020-03-09] MEDS: NICOTINE 21MG/24HR PATCH TRANSDERM SCH (21:30)
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
[2020-03-10] MEDS: HYDROcodone/APAP 10-325MG 1 EACH TAB PO PRN ×4 (03:47→22:06)
[2020-03-10] MEDS: SODIUM CHLORIDE 0.9% 1,000 ML IV SCH ×3 (03:49→21:07)
[2020-03-10] MEDS: HYDROmorphone 1 MG/ML 1 ML SYRINGE IVP PRN ×3 (07:05→19:18)
[2020-03-10] MEDS: NICOTINE 21MG/24HR PATCH TRANSDERM SCH (07:42)
[2020-03-10] MEDS: amLODIPine 10 MG TAB PO SCH (07:42)
[2020-03-10] MEDS: ATORVASTATIN 10 MG TAB PO SCH (07:42)
[2020-03-10] MEDS: METOPROLOL SUCCINATE (ER) 100 MG TAB.ER.24H PO SCH (07:42)
[2020-03-10] MEDS: THIAMINE 100 MG TAB PO SCH ×2 (07:42→19:30)
[2020-03-10] MEDS: PANTOPRAZOLE 40 MG TABLET PO SCH (07:42)
--- NOTE | 2020-03-10 10:32 | P.PN ---
Subjective Progress Note Date: 03/10/20 This patient is 59-year-old female past medical history of hypertension, hyperlipidemia that presented to [facility] emergency department yesterday with complaints of left hip pain. The patient states she was getting out of bed and felt a pop in her hip. She states she has dislocated her hip in the past, and she felt she dislocated it. X-rays in the emergency department confirmed a dislocated total left hip prosthesis. Patient was found to be intoxicated in the emergency department, serum alcohol level 203. Reduction was unsuccessful in the emergency department, therefore the patient was admitted the care of Dr. Bimal Saldaña. Of note, this is the third dislocation the patient has sustained since January 2020. 03/10/20: Patient is seen and examined bedside this morning. The patient states her pain is very well-controlled at this time. She has no complaints or concerns this morning. Her [place] was increased to 03/[address] Del Rosario. She denies chest pain, shortness breath, nausea, vomiting, fevers, chills. She denies numbness or tingling of the left lower extremity. Vital signs stable. Objective - Vital Signs Vital signs: Vital Signs Temp 97.3 F L 03/10/20 07:00 Pulse 94 03/10/20 07:00 Resp 18 03/10/20 07:00 BP 159/98 03/10/20 07:00 Pulse Ox 94 L 03/10/20 07:00 Intake & Output 03/09/20 03/10/20 03/10/20 18:59 06:59 18:59 Weight 47.627 kg Other: Voiding Method Bedpan # Voids 3 2 - Exam On examination, the patient is lying in bed in no apparent distress. She is alert and oriented 3. Her head appears normocephalic and atraumatic. Her breathing appears nonlabored. On inspection of the left hip, there is slight deformity noted. There is a healed incision of the anterior hip. There are no lacerations, abrasions, skin tenting. The skin is warm and well-perfused surrounding the hip. Thigh soft and compressible. Nontender to palpation of the thigh, knee, lower leg, ankle, foot. Patient has good strength and range of motion of the left ankle. Motor and sensory function are intact of the left lower extremity. The left lower extremity is warm and well-perfused with brisk capillary refill distally. Dorsalis pedis pulse +2. Her calves are soft and nontender to palpation bilaterally. - Labs CBC & Chem 7: 03/08/20 18:43 03/08/20 18:43 Assessment and Plan Assessment: Dislocation left total hip arthroplasty. Plan: - Continue bedrest, nonweightbearing left lower extremity, pain management as needed. - We will plan for a left HUSSAIN revision on Wednesday03/11/2020 or Wednesday03/12/2020. Patient will be made NPO at midnight for possible OR tomorrow. - Medical management per internal medicine.
--- NOTE | 2020-03-10 21:44 | P.PN ---
Subjective Progress Note Date: 03/10/20 Principal diagnosis: Left hip dislocation Patient is a 59-year-old female with a known history of hypertension, GERD, osteoarthritis and recent history of left hip arthroplasty presents to ER with complaints of left hip pain. Patient states that she did dislocate her left hip for 3 times in the last couple months. Initially she was getting out of bed and felt a pop on her left hip. Yesterday patient was standing for prolonged. And suddenly dislocated her left hip and came to ER with complaints of pain. X-ray of the left hip/pelvis was done in the ER showed dislocation of the left hip process. No acute fracture is seen. Patient was admitted to the hospital for possible surgery.. Otherwise patient denies any chest pain or shortness breath. No nausea vomiting or abdominal pain or diarrhea. Denies any fall. No headache or dizziness or lightheadedness. No nausea vomiting or abdominal pain or diarrhea. Patient states that she had a stress test done before left hip surgery which was negative. Denies any cardiac problems in the past. Lab data showed alcohol level is 203 MCV 103.7 03/10/2020 Patient is currently lying in the bed comfortably. No complaints of chest pain or shortness breath. No nausea vomiting abdominal pain. Denied any shakiness or alcohol withdrawal symptoms. No fever no chills. No headache or dizziness or lightheadedness. Blood pressure is slightly elevated currently being continued on Norvasc 10 mg daily and metoprolol and will add lisinopril if needed. Current medications reviewed. Objective - Vital Signs Vital signs: Vital Signs Temp 97.8 F 03/10/20 19:12 Pulse 92 03/10/20 19:12 Resp 16 03/10/20 14:58 BP 151/91 03/10/20 19:12 Pulse Ox 93 L 03/10/20 19:12 Intake & Output 03/10/20 03/10/20 03/11/20 06:59 18:59 06:59 Intake Total 1080 Balance 1080 Intake: Oral 1080 Other: Voiding Method Bedpan # Voids 2 5 - Exam PHYSICAL EXAMINATION: Patient is lying in the bed comfortably, no acute distress, awake alert and oriented.. HEENT: Normocephalic. Neck is supple. Pupils reactive. Nostrils clear. Oral cavity is moist. Ears reveal no drainage. Neck reveals no JVD, carotid bruits, or thyromegaly. CHEST EXAMINATION: Trachea is central. Symmetrical expansion. Lung parker clear to auscultation and percussion. CARDIAC: Normal S1, S2 with no gallops. No murmurs ABDOMEN: Soft. Bowel sounds normal. No organomegaly. No abdominal bruits. Extremities: reveal no edema. No clubbing or cyanosis Neurologically awake, alert, oriented x3 with well-coordinated movements. No focal deficits noted Skin: No rash or skin lesions. Psychiatric: Coperative. Nonsuicidal Musculoskeletal: Left hip decreased range of motion and tenderness over the trochanteric region. Left foot drop noted.. - Labs CBC & Chem 7: 03/08/20 18:43 03/08/20 18:43 Assessment and Plan Assessment: Left hip prosthesis dislocation Acute alcohol intoxication on admission Monitor for alcohol withdrawal symptoms Hypertension GERD Osteoarthritis and recent history of left hip arthroplasty DVT prophylaxis Plan: Patient will be continued on thiamine, multivitamins and monitor for alcohol withdrawal symptoms. Continue with home blood pressure medication and pain management. Orthopedic surgery is planning for left total hip arthroplasty revision possibly on Wednesday. Continue to follow closely and continue with strict nonweightbearing. Smoking cessation and alcohol abstinence has been counseled extensively.We will continue to follow with you. Time with Patient: Greater than 30
[2020-03-11] MEDS: HYDROmorphone 1 MG/ML 1 ML SYRINGE IVP PRN ×4 (00:36→19:24)
[2020-03-11] MEDS: HYDROcodone/APAP 10-325MG 1 EACH TAB PO PRN ×3 (04:13→22:14)
[2020-03-11 06:22] LABS: Basophils % (A) 1 %; Eosinophils # (A) 0.2 k/uL (0-0.7); Eosinophils % (A) 3 %; HCT 35.6 % (34.0-46.0); HGB 11.3 gm/dL (11.4-16.0); Lymphocytes # (A) 1.5 k/uL (1.0-4.8); Lymphocytes % (A) 28 %; MCH 32.1 pg (25.0-35.0); MCHC 31.8 g/dL (31.0-37.0); MCV 100.7 fL (80.0-100.0); Mean Platelet Volume 7.8; Monocytes # (A) 0.5 k/uL (0-1.0); Monocytes % (A) 8 %; Neutrophils # (A) 3.2 k/uL (1.3-7.7); Neutrophils % (A) 59 %; Platelet Count 359 k/uL (150-450); RBC 3.53 m/uL (3.80-5.40); RDW 12.2 % (11.5-15.5); WBC 5.4 k/uL (3.8-10.6)
[2020-03-11] MEDS: METOPROLOL SUCCINATE (ER) 100 MG TAB.ER.24H PO SCH (07:45)
[2020-03-11] MEDS: NICOTINE 21MG/24HR PATCH TRANSDERM SCH (07:45)
[2020-03-11] MEDS: amLODIPine 10 MG TAB PO SCH ×2 (08:32→08:57)
[2020-03-11] MEDS: ATORVASTATIN 10 MG TAB PO SCH (08:32)
[2020-03-11] MEDS: PANTOPRAZOLE 40 MG TABLET PO SCH (08:32)
[2020-03-11] MEDS: THIAMINE 100 MG TAB PO SCH ×2 (08:32→16:14)
--- NOTE | 2020-03-11 09:13 | P.PN ---
Subjective Progress Note Date: 03/11/20 This is a 59-year-old female who is admitted for management of recurrent left total hip dislocation. Patient is seen and evaluated at bedside with Dr. Bimal Saldaña today. Patient denies any pain or new complaints today. Objective - Vital Signs Vital signs: Vital Signs Temp 97.8 F 03/11/20 07:00 Pulse 98 03/11/20 07:00 Resp 18 03/11/20 07:00 BP 151/79 03/11/20 07:00 Pulse Ox 95 03/11/20 07:00 Intake & Output 03/10/20 03/11/20 03/11/20 18:59 06:59 18:59 Intake Total 1080 Balance 1080 Intake: Oral 1080 Other: Voiding Method Bedpan # Voids 5 1 - Exam Vital signs are stable. Patient is in no acute distress and is alert and oriented 3. Calf is soft and nontender to palpation. Minimal soft tissue swelling. Skin intact. Patient has full foot and ankle motion without pain or difficulty. Neurovascular status and circulatory status are intact. - Labs CBC & Chem 7: 03/11/20 05:29 03/08/20 18:43 Labs: Abnormal Lab Results - Last 24 Hours (Table) 03/11/20 Range/Units 05:29 RBC 3.53 L (3.80-5.40) m/uL Hgb 11.3 L (11.4-16.0) gm/dL MCV 100.7 H (80.0-100.0) fL Assessment and Plan Plan: 1. NPO after midnight. 2. Non-weightbearing left lower extremity. 3. Appreciate input from medicine. 4. Planning for revision left total hip arthroplasty on 03/12/2020 pending medical clearance and patient consent.
[2020-03-11 10:58] LABS: African American GFR (CKD) 131.2 (60.0-200.0); Anion Gap 8.8 mmol/L (4.00-12.00); Calcium 9.2 mg/dL (8.7-10.3); Carbon Dioxide 26.2 mmol/L (21.6-31.8); Non-African American GFR(CKD) 113.2 (60.0-200.0)
[2020-03-11] MEDS: SODIUM CHLORIDE 0.9% 1,000 ML IV SCH ×2 (11:14→19:25)
[2020-03-11] MEDS ORDERED: Magnesium Replacement Protocol 1 EACH MISC MISCELLANE PRN (11:21)
[2020-03-11] MEDS ORDERED: Potassium Replacement Protocol 1 EACH MISC MISCELLANE PRN (11:21)
[2020-03-11] MEDS: POTASSIUM CHLORIDE ER 20 MEQ TAB.ER PO SCH ×2 (12:16→13:52)
--- NOTE | 2020-03-11 13:59 | P.PN ---
Subjective 59-year-old female with a known history of hypertension, GERD, osteoarthritis and recent history of left hip arthroplasty presents to ER with complaints of left hip pain. Patient states that she did dislocate her left hip for 3 times in the last couple months. Initially she was getting out of bed and felt a pop on her left hip. Yesterday patient was standing for prolonged. And suddenly dislocated her left hip and came to ER with complaints of pain. X-ray of the left hip/pelvis was done in the ER showed dislocation of the left hip process. No acute fracture is seen. Patient was admitted to the hospital for possible surgery.. Otherwise patient denies any chest pain or shortness breath. No nausea vomiting or abdominal pain or diarrhea. Denies any fall. No headache or dizziness or lightheadedness. No nausea vomiting or abdominal pain or diarrhea. Patient states that she had a stress test done before left hip surgery which was negative. Denies any cardiac problems in the past. Lab data showed alcohol level is 203 MCV 103.7 03/10/2020 Patient is currently lying in the bed comfortably. No complaints of chest pain or shortness breath. No nausea vomiting abdominal pain. Denied any shakiness or alcohol withdrawal symptoms. No fever no chills. No headache or dizziness or lightheadedness. Blood pressure is slightly elevated currently being continued on Norvasc 10 mg daily and metoprolol and will add lisinopril if needed. 03/11/2020 Patient denied any syncope and pain did have bowel movements. Patient blood pressure is bit elevated but Will be monitored without any changes in present regimen. Constitutional: Denied any fatigue denied any fever. Cardio vascular: denied any chest pain, palpitations Gastrointestinal denied any nausea vomiting Pulmonary: Denied any shortness of breath cough Neurologic denied any new focal deficits All inpatient medications were reviewed and appropriate changes in these medications as dictated in the interval history and assessment and plan. Objective - Vital Signs Vital signs: Vital Signs Temp 97.8 F 03/11/20 07:00 Pulse 98 03/11/20 07:00 Resp 18 03/11/20 07:00 BP 151/79 03/11/20 07:00 Pulse Ox 95 03/11/20 07:00 Intake & Output 03/10/20 03/11/20 03/11/20 18:59 06:59 18:59 Intake Total 1080 Balance 1080 Intake: Oral 1080 Other: Voiding Method Bedpan # Voids 5 1 - Exam PHYSICAL EXAMINATION: Patient is lying in the bed comfortably, no acute distress, awake alert and oriented.. HEENT: Normocephalic. Neck is supple. Pupils reactive. Nostrils clear. Oral cavity is moist. Ears reveal no drainage. Neck reveals no JVD, carotid bruits, or thyromegaly. CHEST EXAMINATION: Trachea is central. Symmetrical expansion. Lung parker clear to auscultation and percussion. CARDIAC: Normal S1, S2 with no gallops. No murmurs ABDOMEN: Soft. Bowel sounds normal. No organomegaly. No abdominal bruits. Extremities: reveal no edema. No clubbing or cyanosis Neurologically awake, alert, oriented x3 with well-coordinated movements. No focal deficits noted Skin: No rash or skin lesions. Psychiatric: Coperative. Nonsuicidal Musculoskeletal: Left hip decreased range of motion and tenderness over the trochanteric region. Left foot drop noted.. - Labs CBC & Chem 7: 03/11/20 05:29 03/11/20 05:29 Labs: Abnormal Lab Results - Last 24 Hours (Table) 03/11/20 03/11/20 Range/Units 05:29 05:29 RBC 3.53 L (3.80-5.40) m/uL Hgb 11.3 L (11.4-16.0) gm/dL MCV 100.7 H (80.0-100.0) fL Potassium 3.0 L (3.5-5.5) mmol/L BUN 6.0 L (9.0-27.0) mg/dL Creatinine 0.4 L (0.6-1.5) mg/dL Glucose 113 H (70-110) mg/dL Assessment and Plan Plan: Left hip prosthesis dislocation Acute alcohol intoxication on admission Monitor for alcohol withdrawal symptoms Hypertension GERD Osteoarthritis and recent history of left hip arthroplasty DVT prophylaxis Plan: Patient will be continued on thiamine, multivitamins and monitor for alcohol withdrawal symptoms. Continue with home blood pressure medication and pain management. Further management of left hip prosthesis as per primary service Patient can be discharged from medical perspective whenever it's appropriate from orthopedic perspective
[2020-03-11] MEDS: HYDROcodone/APAP 5-325MG 1 EACH TAB PO PRN (16:14)
[2020-03-12] MEDS: HYDROmorphone 1 MG/ML 1 ML SYRINGE IVP PRN ×2 (01:52→07:31)
[2020-03-12] MEDS: HYDROcodone/APAP 10-325MG 1 EACH TAB PO PRN ×2 (04:34→18:00)
[2020-03-12] MEDS: SODIUM CHLORIDE 0.9% 1,000 ML IV SCH ×3 (04:34→20:40)
[2020-03-12] MEDS: ATORVASTATIN 10 MG TAB PO SCH (06:38)
[2020-03-12] MEDS: PANTOPRAZOLE 40 MG TABLET PO SCH (06:38)
[2020-03-12] MEDS: THIAMINE 100 MG TAB PO SCH ×2 (06:38→17:24)
[2020-03-12] MEDS: NICOTINE 21MG/24HR PATCH TRANSDERM SCH (07:26)
[2020-03-12] MEDS: METOPROLOL SUCCINATE (ER) 100 MG TAB.ER.24H PO SCH (07:27)
[2020-03-12 08:19] LABS: INR 0.9 (<1.2); Partial Thromboplastin Time 23.3 sec (22.0-30.0); Prothrombin Time 9.6 sec (9.0-12.0)
[2020-03-12 09:25] LABS: Magnesium 1.3 mg/dL (1.5-2.4); Potassium 3.3 mmol/L (3.5-5.5)
[2020-03-12] MEDS ORDERED: Potassium Replacement Protocol 1 EACH MISC MISCELLANE PRN (09:29)
[2020-03-12] MEDS ORDERED: Magnesium Replacement Protocol 1 EACH MISC MISCELLANE PRN (09:29)
[2020-03-12] MEDS: POTASSIUM CHLORIDE 10 MEQ in WATER FOR INJECTION 1 100ML.BAG IVPB SCH ×5 (10:22→14:50)
[2020-03-12] MEDS ORDERED: IV FLUID CONTINUATION 400 ML IV ONE (10:49)
[2020-03-12] MEDS ORDERED: ONDANSETRON 4 MG/2 ML VIAL ONE (11:34)
[2020-03-12] MEDS ORDERED: ONDANSETRON 4 MG/2 ML VIAL IVP ONE (11:38)
[2020-03-12] MEDS ORDERED: LIDOCAINE 1% (10MG/ML) FOR IV START INTRADERMA ONE (11:38)
[2020-03-12] MEDS ORDERED: DEXAMETHASONE SOD PHOSPHATE 10 MG/ML 1 ML VIAL IV ONE (11:39)
[2020-03-12] MEDS ORDERED: TRANEXAMIC ACID 1,000 MG in SODIUM CHLORIDE 0.9% 100 ML IVPB PRN (12:07)
[2020-03-12] MEDS ORDERED: TRANEXAMIC ACID 1,000 MG/10 ML VIAL ONE (12:16)
[2020-03-12] MEDS ORDERED: SODIUM CHLORIDE 0.9% 100 ML BAG ONE (12:16)
[2020-03-12] MEDS ORDERED: PROPOFOL 10 MG/ML 20 ML VIAL IV ONE (12:16)
[2020-03-12] MEDS ORDERED: MIDAZOLAM 2 MG/2 ML VIAL ONE (12:16)
[2020-03-12] MEDS ORDERED: LIDOCAINE 1% INJ 10MG/ML (20 ML MDV) ONE (12:16)
[2020-03-12] MEDS ORDERED: LACTATED RINGERS 1,000 ML IV ONE (12:30)
[2020-03-12] MEDS ORDERED: HYDROmorphone 1 MG/ML 1 ML SYRINGE IVP PRN (12:54)
[2020-03-12] MEDS ORDERED: hydrOXYzine pamoate 25 MG CAP PO PRN (12:54)
[2020-03-12] MEDS ORDERED: HYDROmorphone 0.5 MG/0.5 ML SYRINGE IVP PRN ×2 (12:54)
[2020-03-12] MEDS ORDERED: NALOXONE 0.4 MG/ML 1 ML VIAL IV PRN (12:54)
[2020-03-12] MEDS ORDERED: ONDANSETRON 4 MG/2 ML VIAL IVP PRN (12:54)
[2020-03-12] MEDS ORDERED: MAGNESIUM HYDROXIDE 2,400 MG/10 ML CUP PO PRN (12:54)
[2020-03-12] MEDS ORDERED: ceFAZolin 3,000 MG in SODIUM CHLORIDE 0.9% IRRIGATIO 3,000 ML IRRIGATION ONE ×4 (12:59)
--- NOTE | 2020-03-12 13:36 | P.OP ---
Date of Procedure: 03/12/20 Preoperative Diagnosis: Recurrent dislocation left total hip arthroplasty Postoperative Diagnosis: Recurrent dislocation left total hip arthroplasty Procedure(s) Performed: Revision left total hip arthroplasty to a dual mobility acetabular insert Implants: [employer] Oxinium DH dual mobility liner 36 mm inner diameter, 48 mm outer diameter [employer] XLP E dual mobility insert 22 mm inner diameter, 36 mm outer diameter [employer] Oxinium femoral head 22 m, +0 All components were press-fit. The articulation is Oxinium on polyethylene. Anesthesia: spinal Surgeon: Bimal Saldaña Deckhand Oyster Dredge #1: Lulu Harris Estimated Blood Loss (ml): 150 (50 mL returned with Cell Saver) Pathology: none sent Condition: stable Disposition: PACU Indications for Procedure: This is a 59-year-old female has had a recent left total hip arthroplasty performed. She was doing well but sustained a posterior dislocation which was close reduced. She then sustained a second dislocation which was close reduced and placed in an abduction brace. She was wearing the abduction brace for approximately 4 weeks without any difficulty when she dislocated the third time. At the time of her third dislocation or alcohol level was 200 because of the recurrent dislocation of her left hip, I recommended a revision total hip arthroplasty with an exchange to a dual mobility liner for increased stability. The other option was for her to have a constrained liner, which may be the option if she dislocates again with the dual mobility liner she is aware of these risks and benefits and informed consent was obtained. Operative Findings: The operative findings are consistent with recurrent dislocation left total hip arthroplasty Description of Procedure: Patient was seen and evaluated in the preoperative area, consent was reviewed, and the surgical site was marked with a skin marker. Patient was then brought to the operating room and given prophylactic antibiotics intravenously. 1 g of Tranexamic acid was also given. A spinal anesthetic was administered by the anesthesia department. The patient was then placed on the Sawyer table with the bony prominences well-padded. The hip area was then prepped and draped in usual sterile fashion. A universal timeout was then performed, which confirmed the patient's name, surgical site, ALLERGIES, and procedure being performed. Next the incision site was located at 1 cm distal and 1 cm lateral to the anterior superior iliac spine. The skin and subcutaneous tissues were sharply incised. The prior incision was excised. Incision was carefully dissected down to the fascia overlying the tensor fascia quinn muscle. This fascia was then incised in line with the incision through the prior interval. The proximal femur was then visualized. The proximal femur was exposed and the 32 mm Oxinium head was then removed from the femoral stem without difficulty. Attention was then directed to the acetabulum. the acetabulum was exposed and any surrounding scar tissue was excised. The prior policy liner was then removed without difficulty the dual mobility acetabular insert was then impacted. Component locking was confirmed. Attention was then directed to the femur. Proximal femurs reexposed and the final dual mobility head and polyethylene insert were impacted on the femoral neck the hip was then gently reduced. The hip was taken through a full range of motion and was stable throughout. Final fluoroscopic x-rays confirmed that the components were in anatomic position, as well as equal leg lengths. The hip was also taken through range of motion, and found to be stable. The hip was then copiously irrigated with antibiotic solution with pulsatile lavage. The hip was then irrigated with Irrisept solution. A second dose of 1 g of Tranexamic acid was also given. the fascia was then closed with 2-0 strata fix suture. The subcutaneous tissue was closed with 3-0 Vicryl. The subcuticular tissue was closed with 3-0 strata fix suture. The skin was then closed with Exofin glue and a sterile silver dressing. The patient was then transferred to the recovery room in stable condition. The department assistant MARCELLE Verdin was required due to the complexity of surgery, and the need for skilled surgical rn for positioning, draping, exposure, retraction, and closure of the wound.
--- NOTE | 2020-03-12 14:29 | FL ---
EXAMINATION TYPE: FL guidance operating room DATE OF EXAM: 03/12/2020 HISTORY: Fluoroscopy time 18 seconds of fluoroscopy provided. IMPRESSION: 1. Fluoroscopy time.
--- NOTE | 2020-03-12 14:30 | XR ---
EXAMINATION TYPE: XR Hip Limited LT DATE OF EXAM: 03/12/2020 COMPARISON: NONE HISTORY: Postop TECHNIQUE: One view submitted. FINDINGS: There is postsurgical change in near anatomic alignment. There is soft tissue edema and emphysema. IMPRESSION: 1. Postoperative change. Appears in near-anatomic alignment.
[2020-03-12] MEDS: MAGNESIUM SULFATE-D5W PMX 1 GM in DEXTROSE/WATER 1 100ML.BAG IVPB SCH ×3 (16:12→18:38)
--- NOTE | 2020-03-12 17:18 | XR ---
EXAMINATION TYPE: XR Hip Limited LT DATE OF EXAM: 03/12/2020 CLINICAL HISTORY: Left hip recurrent dislocation. TECHNIQUE: Single AP portable view of left hip is obtained immediately postoperatively. COMPARISON: Prior left hip x-ray February 09, 2020. FINDINGS: Metallic hardware from new total left hip arthroplasty is seen and appears satisfactory in alignment and position. There is evidence of recent surgery with subcutaneous gas noted extending ornelas periorly and laterally. IMPRESSION: Metallic hardware from left hip arthroplasty revision is satisfactory in position.
[2020-03-12] MEDS: ASPIRIN 325 MG TAB PO SCH (20:42)
[2020-03-12] MEDS ORDERED: SENNOSIDES-DOCUSATE SODIUM 1 EACH TAB PO SCH (21:00)
[2020-03-13] MEDS: HYDROcodone/APAP 10-325MG 1 EACH TAB PO PRN ×2 (00:03→05:58)
[2020-03-13] MEDS: POTASSIUM CHLORIDE ER 20 MEQ TAB.ER PO SCH ×2 (01:40→02:56)
[2020-03-13 06:14] LABS: Basophils % (A) 0 %; Eosinophils # (A) 0.1 k/uL (0-0.7); Eosinophils % (A) 1 %; HCT 31.2 % (34.0-46.0); HGB 10.1 gm/dL (11.4-16.0); Lymphocytes # (A) 1.8 k/uL (1.0-4.8); Lymphocytes % (A) 22 %; MCH 33.3 pg (25.0-35.0); MCHC 32.2 g/dL (31.0-37.0); MCV 103.3 fL (80.0-100.0); Macrocytosis Slight; Monocytes # (A) 0.6 k/uL (0-1.0); Monocytes % (A) 7 %; Neutrophils # (A) 5.6 k/uL (1.3-7.7); Neutrophils % (A) 68 %; Platelet Count 408 k/uL (150-450); RBC 3.02 m/uL (3.80-5.40); RDW 12.9 % (11.5-15.5); WBC 8.2 k/uL (3.8-10.6)
[2020-03-13] MEDS: METOPROLOL SUCCINATE (ER) 100 MG TAB.ER.24H PO SCH (07:35)
[2020-03-13] MEDS: PANTOPRAZOLE 40 MG TABLET PO SCH (07:36)
[2020-03-13] MEDS: ASPIRIN 325 MG TAB PO SCH (07:36)
[2020-03-13] MEDS: THIAMINE 100 MG TAB PO SCH (07:36)
[2020-03-13] MEDS: NICOTINE 21MG/24HR PATCH TRANSDERM SCH (07:36)
[2020-03-13] MEDS: ATORVASTATIN 10 MG TAB PO SCH (07:36)
[2020-03-13 07:55] VITALS: BP 137/84; PULSE 102; RESP 18; TEMP 98.1
--- NOTE | 2020-03-13 08:23 | P.DS ---
Providers Date of admission: 03/08/20 19:40 Expected date of discharge: 03/13/20 Attending physician: Bimal Saldaña Consults: 03/09/20 09:07 Consult Physician Routine Consulting Provider: Soila Bustillo Consult Reason/Comments: medical management Do you want consulting provider notified?: Yes Primary care physician: Mg Barger, DO - Discharge Diagnosis(es) (1) S/P revision of total hip Current Visit: Yes Status: Acute (2) Posterior dislocation of hip Current Visit: No Status: Acute Hospital Course: This is a 59-year-old female with known history left total hip arthroplasty with recurrent dislocation. The patient presented to the emergency room on 03/08/2020 with an alcohol level of 200 at the time of her third dislocation. After discussion and consideration patient elects to proceed with revision left total hip arthroplasty with placement of a dual mobility acetabular insert. The patient is seen preoperatively by Dr. Saldaña and medically cleared for surgery by internal medicine. Patient is admitted to [facility] on 03/08/2020 and revision left total hip arthroplasty with placement of a dual mobility acetabular insert is performed on 03/12/2020. The procedure is performed without complication or sequelae. The patient is doing well postoperatively. Labs and vital signs are stable on day of discharge. On day of discharge patient's hip incision is healing well. There is minimal erythema. There is no drainage noted at this time. There is minimal soft tissue swelling to the hip and thigh. Patient has full foot and ankle motion without difficulty or pain. Calf is soft and nontender to palpation. Neurovascular status to the left lower extremity is intact. Patient is discharged home in good condition. Opioid start talking form is reviewed and signed at patient bedside. Please see med rec for accurate list of home medications. Patient Condition at Discharge: Fair Plan - Discharge Summary New Discharge Prescriptions: New Sennosides [Senokot] 2 tab PO DAILY PRN #60 tablet PRN Reason: Constipation Aspirin 325 mg PO BID #60 tab HYDROcodone/APAP 7.5-325MG [Shiloh 7.5-325] 1 - 2 tab PO Q6H PRN #32 tab PRN Reason: Pain No Action amLODIPine [Norvasc] 10 mg PO DAILY Atorvastatin [Lipitor] 10 mg PO DAILY Venlafaxine HCl [Effexor] 75 mg PO DAILY Metoprolol Succinate [Toprol XL] 100 mg PO DAILY Ibuprofen [Motrin] 800 mg PO Q8H PRN PRN Reason: Pain Pantoprazole [Protonix] 40 mg PO DAILY Aspirin 325 mg PO DAILY Fenofibrate Nanocrystallized [Fenofibrate] 145 mg PO DAILY HYDROcodone/APAP 7.5-325MG [Shiloh 7.5-325] 1 tab PO Q4-6H PRN PRN Reason: Pain Discharge Medication List Atorvastatin [Lipitor] 10 mg PO DAILY 12/29/19 [History] Ibuprofen [Motrin] 800 mg PO Q8H PRN 12/29/19 [History] Metoprolol Succinate [Toprol XL] 100 mg PO DAILY 12/29/19 [History] Pantoprazole [Protonix] 40 mg PO DAILY 12/29/19 [History] Venlafaxine HCl [Effexor] 75 mg PO DAILY 12/29/19 [History] amLODIPine [Norvasc] 10 mg PO DAILY 12/29/19 [History] Aspirin 325 mg PO DAILY 01/31/20 [History] Fenofibrate Nanocrystallized [Fenofibrate] 145 mg PO DAILY 01/31/20 [History] HYDROcodone/APAP 7.5-325MG [Shiloh 7.5-325] 1 tab PO Q4-6H PRN 03/08/20 [History] Aspirin 325 mg PO BID #60 tab 03/13/20 [Rx] HYDROcodone/APAP 7.5-325MG [Shiloh 7.5-325] 1 - 2 tab PO Q6H PRN #32 tab 03/13/20 [Rx] Sennosides [Senokot] 2 tab PO DAILY PRN #60 tablet 03/13/20 [Rx] Follow up Appointment(s)/Referral(s): Bimal Saldaña DO [Family Provider] - 2 Weeks Mg Barger DO [Primary Care Provider] - 1-2 days Ambulatory/Diagnostic Orders: Ambulatory Physical Therapy Order [THER.AMB] Location: None Selected Activity/Diet/Wound Care/Special Instructions: Weightbearing as tolerated with walker. Leave dressing intact. Dressing may be removed by home care nurse or by patient in 10 days. May shower with dressing on. Continue hip dislocation precautions. Please take aspirin 325mg twice daily for 30 days to prevent blood clots. Recommend use of compression stockings daily until follow up to help prevent swelling and blood clots. May remove at night before sleeping. Please follow-up with [facility] in 2 weeks and call with any questions or concerns, . Discharge Disposition: HOME WITH HOME HEALTH SERVICES
[2020-03-13] MEDS ORDERED: MELOXICAM 7.5 MG TAB PO SCH (09:00)
[2020-03-13 09:25] LABS: Magnesium 1.8 mg/dL (1.5-2.4); Potassium 4.1 mmol/L (3.5-5.5)
== END 2020-03-13 09:20 | disposition home or self-care (01) | DRG 468 ==
LOC: EC 16:41 → 4SSUR 19:40
PROVIDERS: ADMIT Orthopaedic Surgery; ATTEND Orthopaedic Surgery
PROC: 0SWBXJZ Revision of Synthetic Substitute in Left Hip Joint, External Approach (ICD-10-PCS; 2020-03-08)
PROC: 0SRB06A Replacement of Left Hip Joint with Oxidized Zirconium on Polyethylene Synthetic Substitute, Uncemented, Open Approach (ICD-10-PCS; principal; 2020-03-12 11:45)
PROC: 0SPB0JZ Removal of Synthetic Substitute from Left Hip Joint, Open Approach (ICD-10-PCS; principal; 2020-03-12 11:45)
DX: T84.021A Dislocation of internal left hip prosthesis, initial encounter (principal); E78.5 Hyperlipidemia, unspecified; F10.129 Alcohol abuse with intoxication, unspecified; Y90.7 Blood alcohol level of 200-239 mg/100 ml; I10 Essential (primary) hypertension; K21.9 Gastro-esophageal reflux disease without esophagitis; M54.30 Sciatica, unspecified side; M21.372 Foot drop, left foot; M19.90 Unspecified osteoarthritis, unspecified site; F17.210 Nicotine dependence, cigarettes, uncomplicated; Z79.82 Long term (current) use of aspirin; Z79.899 Other long term (current) drug therapy; Z98.891 History of uterine scar from previous surgery; Z87.19 Personal history of other diseases of the digestive system; Z87.09 Personal history of other diseases of the respiratory system; Y79.2 Prosthetic and other implants, materials and accessory orthopedic devices associated with adverse incidents; Y92.009 Unspecified place in unspecified non-institutional (private) residence as the place of occurrence of the external cause; Z80.8 Family history of malignant neoplasm of other organs or systems
CPT/HCPCS: 27250; 36415; 73501; 73502; 80048; 80053; 80320; 83735; 84132; 85025; 85610; 85730; 86850; 86900; 86901; 96361; 96372; 96374; 96376; 99152; 99153; 99285

== ENCOUNTER 2020-04-26 12:37 | Inpatient (IN) | payer OTHER ==
[2020-04-26] MEDS ORDERED: HYDROmorphone 1 MG/ML 1 ML SYRINGE IM STA (13:09)
[2020-04-26] MEDS ORDERED: KETOROLAC 15 MG/ML 1 ML VIAL IM STA (13:09)
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
--- NOTE | 2020-04-26 14:02 | XR ---
EXAMINATION TYPE: XR Hip LT and AP Pelvis DATE OF EXAM: 04/26/2020 COMPARISON: Prior 03/08/2020 HISTORY: Hip pain TECHNIQUE: A single AP view of the pelvis is obtained. Two views of the left hip are obtained. FINDINGS: There is post arthroplasty change the left hip, the left hip shows dislocation. The overly ing soft tissue appears unremarkable. No focal lytic or sclerotic lesion seen in the proximal left femur. The overlying soft tissue is unr emarkable. Degenerative disc changes are noted in the lower lumbar spine. IMPRESSION: Left hip dislocation.
[2020-04-26] MEDS ORDERED: HYDROmorphone 0.5 MG/0.5 ML SYRINGE IVP STA (14:42)
[2020-04-26] MEDS ORDERED: SODIUM CHLORIDE 0.9% 1,000 ML IV ONE (14:46)
[2020-04-26] MEDS ORDERED: HYDROmorphone 0.5 MG/0.5 ML SYRINGE IVP PRN (14:50)
[2020-04-26 15:03] LABS: Basophils % (A) 0 %; Eosinophils # (A) 0.3 k/uL (0-0.7); Eosinophils % (A) 3 %; HCT 36.1 % (34.0-46.0); HGB 11.7 gm/dL (11.4-16.0); Lymphocytes % (A) 9 %; MCHC 32.3 g/dL (31.0-37.0); MCV 102.1 fL (80.0-100.0); Macrocytosis Slight; Mean Platelet Volume 6.9; Monocytes # (A) 0.5 k/uL (0-1.0); Monocytes % (A) 4 %; Neutrophils # (A) 9.6 k/uL (1.3-7.7); Neutrophils % (A) 84 %; Platelet Count 522 k/uL (150-450); RBC 3.54 m/uL (3.80-5.40); RDW 12.8 % (11.5-15.5); WBC 11.5 k/uL (3.8-10.6)
[2020-04-26 15:26] LABS: ALT 13 U/L (4-34); AST 30 U/L (14-36); African American GFR (CKD) >90 (>60 ml/min/1.73 sqM); Albumin 4.3 g/dL (3.5-5.0); Alcohol <10 mg/dL; Alkaline Phosphatase 55 U/L (38-126); Anion Gap 8 mmol/L; Blood Urea Nitrogen 14 mg/dL (7-17); Calcium 9.7 mg/dL (8.4-10.2); Carbon Dioxide 23 mmol/L (22-30); Chloride 106 mmol/L (98-107); Glucose 117 mg/dL (74-99); Non-African American GFR(CKD) >90 (>60 ml/min/1.73 sqM); Potassium 4.1 mmol/L (3.5-5.1); Sodium 137 mmol/L (137-145); Total Bilirubin 0.8 mg/dL (0.2-1.3); Total Protein 7.1 g/dL (6.3-8.2)
[2020-04-26 15:43] LABS: Prothrombin Time 10.3 sec (9.0-12.0)
[2020-04-26 15:48] LABS: Partial Thromboplastin Time 21.6 sec (22.0-30.0)
[2020-04-26] MEDS ORDERED: hydrOXYzine pamoate 25 MG CAP PO PRN (16:30)
[2020-04-26] MEDS ORDERED: SENNOSIDES-DOCUSATE SODIUM 1 EACH TAB PO PRN (16:30)
[2020-04-26] MEDS ORDERED: ONDANSETRON 4 MG/2 ML VIAL IVP PRN (16:30)
[2020-04-26] MEDS ORDERED: HYDROmorphone 0.2 MG/1 ML SYRINGE IVP PRN (16:30)
[2020-04-26] MEDS ORDERED: DIAZEPAM 5 MG/ML 2 ML INJ IVP PRN (16:33)
[2020-04-26] MEDS: NICOTINE 14MG/24HR PATCH TRANSDERM SCH (17:29)
[2020-04-26] MEDS: HYDROmorphone 0.5 MG/0.5 ML SYRINGE IVP PRN (17:29)
[2020-04-26] MEDS: HYDROmorphone 1 MG/ML 1 ML SYRINGE IVP PRN (20:30)
[2020-04-26] MEDS: HYDROcodone/APAP 7.5-325MG 1 EACH TAB PO PRN (21:03)
[2020-04-27] MEDS: HYDROmorphone 1 MG/ML 1 ML SYRINGE IVP PRN ×8 (01:16→23:01)
[2020-04-27] MEDS: HYDROcodone/APAP 7.5-325MG 1 EACH TAB PO PRN ×4 (02:25→19:58)
[2020-04-27] MEDS: NICOTINE 14MG/24HR PATCH TRANSDERM SCH (08:34)
[2020-04-27] MEDS ORDERED: NICOTINE 14MG/24HR PATCH TRANSDERM SCH (09:00)
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
[2020-04-27 13:50] VITALS: BMI 18.0
[2020-04-27] MEDS ORDERED: FLUOCINONIDE 0.05% TOPICAL PRN (14:04)
[2020-04-27] MEDS ORDERED: IBUPROFEN 800 MG TAB PO PRN (14:04)
[2020-04-27] MEDS: METOPROLOL SUCCINATE (ER) 100 MG TAB.ER.24H PO SCH (14:58)
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
[2020-04-28] MEDS: HYDROmorphone 1 MG/ML 1 ML SYRINGE IVP PRN ×7 (02:46→21:01)
[2020-04-28] MEDS: HYDROcodone/APAP 7.5-325MG 1 EACH TAB PO PRN ×4 (02:46→20:59)
[2020-04-28] MEDS: ATORVASTATIN 10 MG TAB PO SCH ×2 (07:41→07:42)
[2020-04-28] MEDS: NICOTINE 14MG/24HR PATCH TRANSDERM SCH (07:41)
[2020-04-28] MEDS: METOPROLOL SUCCINATE (ER) 100 MG TAB.ER.24H PO SCH (07:42)
[2020-04-28] MEDS: PANTOPRAZOLE 40 MG TABLET PO SCH (07:42)
[2020-04-28] MEDS: FENOFIBRATE 160 MG TAB PO SCH (07:42)
[2020-04-28] MEDS: VENLAFAXINE HCL 75 MG TAB PO SCH (07:42)
--- NOTE | 2020-04-28 08:06 | P.PN ---
Subjective Progress Note Date: 04/28/20 Principal diagnosis: Recurrent left hip prosthesis dislocation This is a 59 year-old female who we have been following for recurrent left hip prosthesis dislocation. The patient was evaluated at the bedside today. The patient denies nausea, vomiting, abdominal pain, shortness of breath, and chest pain this morning. She states her pain is controlled at this time. The patient will be NPO tonight for possible revision left HUSSAIN tomorrow or Wednesday. Objective - Vital Signs Vital signs: Vital Signs Temp 98.1 F 04/28/20 06:09 Pulse 116 H 04/28/20 06:09 Resp 18 04/28/20 06:09 BP 151/91 04/28/20 06:09 Pulse Ox 95 04/28/20 06:09 Intake & Output 04/27/20 04/28/20 04/28/20 18:59 06:59 18:59 Weight 47.627 kg Other: Voiding Method Bedpan # Voids 2 1 - Exam The patient is a 59-year-old female in no acute distress. She is alert and oriented 3. On inspection of the left hip, there is swelling and mild ecchymosis present to the lateral hip. There is a healed incision to the anterior hip. There are no open wounds or abrasions noted. Thigh is soft. There is tenderness to the lateral hip and thigh. Calf is soft and nontender. Good foot and ankle motion present. Dorsalis pedis pulse 2+. Foot is warm and well perfused. - Labs CBC & Chem 7: 04/26/20 14:51 04/26/20 14:51 Assessment and Plan (1) Dislocation of internal left hip prosthesis Current Visit: No Status: Acute Code(s): T84.021A - DISLOCATION OF INTERNAL LEFT HIP PROSTHESIS, INIT ENCNTR SNOMED Code(s): 560736547 (2) S/P revision of total hip Current Visit: No Status: Acute Code(s): Z96.649 - PRESENCE OF UNSPECIFIED ARTIFICIAL HIP JOINT SNOMED Code(s): 826159894 Plan: The clinical and x-ray findings were discussed with the patient. The case was discussed with Dr. Bimal Saldaña. Continue pain control. The patient will be NPO on Wednesday night for left total hip arthroplasty revision either Wednesday or Wednesday next week. She should remain strictly nonweightbearing to the left lower extremity and on bedrest. Internal medicine has been consulted for medical management. We will continue to follow patient closely and make further recommendations as needed.
--- NOTE | 2020-04-28 12:57 | P.PN ---
Subjective 59-year-old female was admitted after hip dislocation patient is clinically doing well at this time patient will undergo surgical intervention tomorrow. Constitutional: Denied any fatigue denied any fever. Cardio vascular: denied any chest pain, palpitations Gastrointestinal denied any nausea vomiting Pulmonary: Denied any shortness of breath cough Neurologic denied any new focal deficits All inpatient medications were reviewed and appropriate changes in these medications as dictated in the interval history and assessment and plan. Objective - Vital Signs Vital signs: Vital Signs Temp 98.1 F 04/28/20 06:09 Pulse 116 H 04/28/20 06:09 Resp 18 04/28/20 06:09 BP 151/91 04/28/20 06:09 Pulse Ox 95 04/28/20 06:09 Intake & Output 04/27/20 04/28/20 04/28/20 18:59 06:59 18:59 Weight 47.627 kg Other: Voiding Method Bedpan # Voids 2 1 - Exam PHYSICAL EXAMINATION: GENERAL: The patient is alert and oriented x3, not in any acute distress. Well developed, well nourished. HEENT: Pupils are round and equally reacting to light. EOMI. No scleral icterus. No conjunctival pallor. Normocephalic, atraumatic. No pharyngeal erythema. No thyromegaly. CARDIOVASCULAR: S1 and S2 present. No murmurs, rubs, or gallops. PULMONARY: Chest is clear to auscultation, no wheezing or crackles. ABDOMEN: Soft, nontender, nondistended, normoactive bowel sounds. No palpable organomegaly. MUSCULOSKELETAL: Deferred to orthopedic surgery EXTREMITIES: No cyanosis, clubbing, or pedal edema. NEUROLOGICAL: Gross neurological examination did not reveal any focal deficits. SKIN: No rashes. - Labs CBC & Chem 7: 04/26/20 14:51 04/26/20 14:51 Assessment and Plan Plan: -Tachycardia : Will opt any EKG patient is in metoprolol 100 by mouth daily at this time. -Preoperative risk assessment: Patient is low to intermediate operative his patient's most stresses from active smoking history. -Possibly of COPD without any significant exacerbation -Hypertension: Hold off on amlodipine to avoid perioperative hypotension patient blood pressure is low normal at this time -Gastroesophageal reflux disease -DVT prophylaxis and pain management as per primary service -Left hip dislocation: Management as per primary service
[2020-04-29] MEDS: HYDROmorphone 1 MG/ML 1 ML SYRINGE IVP PRN ×8 (00:14→22:27)
[2020-04-29] MEDS: HYDROcodone/APAP 7.5-325MG 1 EACH TAB PO PRN ×2 (03:09→20:33)
[2020-04-29] MEDS: PANTOPRAZOLE 40 MG TABLET PO SCH (09:03)
[2020-04-29] MEDS: FENOFIBRATE 160 MG TAB PO SCH ×2 (09:04→09:06)
[2020-04-29] MEDS: NICOTINE 14MG/24HR PATCH TRANSDERM SCH (09:06)
[2020-04-29] MEDS: METOPROLOL SUCCINATE (ER) 100 MG TAB.ER.24H PO SCH (09:06)
[2020-04-29] MEDS: VENLAFAXINE HCL 75 MG TAB PO SCH (09:07)
[2020-04-29] MEDS ORDERED: METOPROLOL TARTRATE 25 MG TAB PO STA (12:13)
--- NOTE | 2020-04-29 15:18 | P.PN ---
Subjective 59-year-old female was admitted after hip dislocation patient is clinically doing well at this time patient will undergo surgical intervention tomorrow. 04/29/2020 Patient will undergo surgical intervention today. Dislocated her right hip. Patient remains tachycardic EKG showed sinus tachycardia will obtain a TSH Link is a dose of metoprolol patient blood pressure is borderline. Patient does have sinus tachycardia as an outpatient and even little bit of pain will make her tachycardic. Constitutional: Denied any fatigue denied any fever. Cardio vascular: denied any chest pain, palpitations Gastrointestinal denied any nausea vomiting Pulmonary: Denied any shortness of breath cough Neurologic denied any new focal deficits All inpatient medications were reviewed and appropriate changes in these medications as dictated in the interval history and assessment and plan. Objective - Vital Signs Vital signs: Vital Signs Temp 98.0 F 04/29/20 15:00 Pulse 105 H 04/29/20 15:00 Resp 18 04/29/20 15:00 BP 123/85 04/29/20 15:00 Pulse Ox 93 L 04/29/20 15:00 Intake & Output 04/28/20 04/29/20 04/29/20 18:59 06:59 18:59 Other: # Voids 3 4 3 - Exam PHYSICAL EXAMINATION: GENERAL: The patient is alert and oriented x3, not in any acute distress. Well developed, well nourished. HEENT: Pupils are round and equally reacting to light. EOMI. No scleral icterus. No conjunctival pallor. Normocephalic, atraumatic. No pharyngeal erythema. No thyromegaly. CARDIOVASCULAR: S1 and S2 present. No murmurs, rubs, or gallops. Tachycardic sinus rhythm PULMONARY: Chest is clear to auscultation, no wheezing or crackles. ABDOMEN: Soft, nontender, nondistended, normoactive bowel sounds. No palpable organomegaly. MUSCULOSKELETAL: Deferred to orthopedic surgery EXTREMITIES: No cyanosis, clubbing, or pedal edema. NEUROLOGICAL: Gross neurological examination did not reveal any focal deficits. SKIN: No rashes. - Labs CBC & Chem 7: 04/26/20 14:51 04/26/20 14:51 Assessment and Plan Plan: -Tachycardia : EKG showed sinus tachycardia increase metoprolol to 150 sustained release daily. TSH will be obtained -Preoperative risk assessment: Patient is low to intermediate operative risk because of her extensive smoking history. -Possibly of COPD without any significant exacerbation -Hypertension: Hold off on amlodipine to avoid perioperative hypotension patient blood pressure is low normal at this time him on the lower side -Gastroesophageal reflux disease -DVT prophylaxis and pain management as per primary service -Left hip dislocation: Management as per primary service
[2020-04-29] MEDS ORDERED: LACTATED RINGERS 1,000 ML IV ONE (16:05)
[2020-04-29] MEDS ORDERED: ONDANSETRON 4 MG/2 ML VIAL IVP ONE (16:17)
[2020-04-29] MEDS ORDERED: DEXAMETHASONE SOD PHOSPHATE 4 MG/ML 1 ML VIAL IVP ONE (16:17)
[2020-04-29] MEDS ORDERED: NALOXONE 0.4 MG/ML 1 ML VIAL IV PRN (16:29)
[2020-04-29] MEDS ORDERED: MAGNESIUM HYDROXIDE 2,400 MG/10 ML CUP PO PRN (16:31)
[2020-04-29] MEDS ORDERED: KETAMINE 10 MG/ML 20 ML VIAL ONE (17:05)
[2020-04-29] MEDS ORDERED: MIDAZOLAM 2 MG/2 ML VIAL ONE (17:05)
[2020-04-29] MEDS ORDERED: fentaNYL (PF) 50 MCG/ML 2 ML AMP ONE (17:05)
[2020-04-29] MEDS ORDERED: PROPOFOL 10 MG/ML 20 ML VIAL IV ONE (17:05)
[2020-04-29] MEDS: SODIUM CHLORIDE 0.9% 1,000 ML IV SCH (17:36)
[2020-04-29] MEDS ORDERED: ceFAZolin 3,000 MG in SODIUM CHLORIDE 0.9% IRRIGATIO 3,000 ML IRRIGATION ONE (17:43)
--- NOTE | 2020-04-29 18:03 | P.OP ---
Date of Procedure: 04/29/20 Preoperative Diagnosis: Dislocation left total hip arthroplasty Postoperative Diagnosis: Dislocation left total hip arthroplasty Procedure(s) Performed: Open reduction of dislocation of left total hip arthroplasty Anesthesia: spinal Surgeon: Bimal Saldaña [employer] Inspector #1: Lulu Harris Estimated Blood Loss (ml): 100 Pathology: none sent Condition: stable Disposition: PACU Indications for Procedure: This is a 59-year-old female that has a recurrent dislocations of her left total hip arthroplasty. She's had a recent revision to a dual mobility cup. She was doing very well and actually was just seen in the office and given a return to work date. She apparently fell asleep with her leg flexed and felt it dislocate on Wednesday. After discussing the multiple possible treatment options including a close reduction, and open reduction, a revision to a constrained liner, and a revision of the acetabular component. After weighing multiple factors and discussing the options at length with the patient I recommended open reduction. Informed consent was obtained. Operative Findings: Operative findings are consistent with a dislocation of a left total hip arthroplasty. After reduction of the hip, a thorough and vigorous range of motion testing was performed and the hip was found to be stable. Description of Procedure: Patient was seen and evaluated in the preoperative area and the consent was reviewed. The operative site was marked with a skin marker. The patient was then brought to the operating room and given preoperative antibiotics intravenously. A spinal anesthetic was administered by the anesthesia department. The patient was then placed on the [place] table with the bony prominences well-padded. The hip area was then prepped with a ChloraPrep solution and draped in the usual sterile fashion. A universal timeout was then performed, which confirmed the patient's name, surgical site, ALLERGIES, and procedure being performed on the consent. Next the incision site was located at 1 cm distal and 1 cm lateral to the anterior superior iliac spine. The skin and subcutaneous tissues were sharply incised with the prior incision excised. Incision was carefully dissected down to the fascia overlying the tensor fascia quinn muscle. This fascia was then incised in line with the incision. Care was taken to stay laterally in order to avoid injuring the lateral femoral cutaneous nerve. Next, using blunt finger dissection, the tensor fascia quinn muscle was dissected off its investing fascia. The proximal femur was then visualized. The dislocation was readily visualized. The acetabular component was then visualized as well and inspected and found to be stable. There appeared to be no damage to the dual mobility components. A reduction was then performed of the hip. Traction was placed through the Wake[place] table as well as direct reduction with the aid of a femoral head reduction tool. The hip was very difficult to reduce it was very stable upon reduction. The foot was removed from the [place] table with full range of motion performed on the hip including posterior force applied to the hip in extreme flexion and was found to be stable. X-rays were obtained fluoroscopically which confirmed reduction of the hip. The hip was then copiously irrigated with antibiotic solution with pulsatile lavage. The fascia was then closed with 2-0 strata fix suture. The subcutaneous tissue was closed with 3-0 Vicryl. The subcuticular tissue was closed with 3-0 strata fix suture. The skin was then closed with Exofin skin glue. After the glue and dried, and Optifoam silver impregnated dressing was applied. The patient was then transferred to the recovery room in stable condition. The evaluation assistant MARCELLE Verdin was required due to the complexity of surgery, and the need for skilled cardiovascular surgical tech for positioning, draping, exposure, retraction, and closure of the wound.
--- NOTE | 2020-04-29 18:53 | XR ---
EXAMINATION TYPE: XR Hip Limited LT DATE OF EXAM: 04/29/2020 COMPARISON: 04/26/2020 HISTORY: Postop TECHNIQUE: Single view FINDINGS: There is anatomic reduction of the dislocated femoral head. IMPRESSION: Anatomic reduction. No complicating process seen.
[2020-04-29 21:04] LABS: Basophils # (A) 0.1 k/uL (0-0.2); Basophils % (A) 1 %; Eosinophils % (A) 1 %; HCT 27.3 % (34.0-46.0); Lymphocytes # (A) 0.5 k/uL (1.0-4.8); Lymphocytes % (A) 7 %; MCH 34.4 pg (25.0-35.0); MCV 104.2 fL (80.0-100.0); Macrocytosis Slight; Mean Platelet Volume 7.2; Monocytes # (A) 0.2 k/uL (0-1.0); Monocytes % (A) 2 %; Neutrophils # (A) 7.1 k/uL (1.3-7.7); Neutrophils % (A) 90 %; Platelet Count 436 k/uL (150-450); RBC 2.62 m/uL (3.80-5.40); RDW 12.5 % (11.5-15.5)
[2020-04-30 01:14] VITALS: TEMP 97.9
[2020-04-30] MEDS: HYDROmorphone 1 MG/ML 1 ML SYRINGE IVP PRN (01:56)
[2020-04-30] MEDS: HYDROcodone/APAP 7.5-325MG 1 EACH TAB PO PRN ×2 (03:26→09:17)
[2020-04-30] MEDS: HYDROmorphone 0.5 MG/0.5 ML SYRINGE IVP PRN (05:17)
[2020-04-30 08:34] VITALS: BP 128/74; PULSE 118; RESP 16
[2020-04-30] MEDS ORDERED: METOPROLOL SUCCINATE (ER) 50 MG TAB.ER.24H PO SCH (09:00)
[2020-04-30] MEDS ORDERED: ASPIRIN 325 MG TAB PO SCH (09:00)
[2020-04-30] MEDS: PANTOPRAZOLE 40 MG TABLET PO SCH (09:04)
[2020-04-30] MEDS: FENOFIBRATE 160 MG TAB PO SCH (09:04)
[2020-04-30] MEDS: VENLAFAXINE HCL 75 MG TAB PO SCH (09:05)
[2020-04-30] MEDS: ATORVASTATIN 10 MG TAB PO SCH (09:06)
[2020-04-30] MEDS: NICOTINE 14MG/24HR PATCH TRANSDERM SCH (09:06)
[2020-04-30] MEDS: SODIUM CHLORIDE 0.9% 1,000 ML IV SCH (10:13)
--- NOTE | 2020-04-30 12:16 | FL ---
EXAMINATION TYPE: FL guidance operating room, XR Hip Limited LT DATE OF EXAM: 04/29/2020 CLINICAL HISTORY: Left hip dislocation. TECHNIQUE: Fluoroscopy. Intraoperative limited views left hip. COMPARISON: Pelvic and left hip x-ray 3 days earlier. FINDINGS: Fluoroscopic guidance was provided during prosthetic hip relocation procedure performed by Dr. Saldaña. A total of 9 seconds of fluoroscopic time was utilized during the procedure and 2 spo t images are obtained. Images obtained not sent to PACS for interpretation. IMPRESSION: As Above.
--- NOTE | 2020-04-30 15:25 | P.DS ---
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 Patient is status post revision left total hip arthroplasty as well. Patient presented to the emergency room on 04/26/2020 after waking up with her left leg flexed and her left hip dislocated. After discussion and consideration patient elects to proceed with open reduction left total hip arthroplasty. The patient is seen preoperatively by Dr. Saldaña and medically cleared for surgery by internal medicine. Patient is admitted to [facility] on 04/26/2020 and open reduction left total hip arthroplasty is performed on 04/29/2020. The procedure is performed without complication or sequelae. The patient is doing well postoperatively. Labs and vital signs are stable on day of discharge. Patient has an abduction brace from home that she will utilize postoperatively. On day of discharge patient's hip incision is healing well. There is minimal erythema. There is no drainage noted at this time. There is minimal soft tissue swelling to the hip and thigh. Patient has full foot and ankle motion without difficulty or pain. Calf is soft and nontender to palpation. Neurovascular status to the left lower extremity is intact. Patient is discharged home in good condition. Please see med rec for accurate list of home medications. Plan - Discharge Summary Discharge Rx Participant: Yes New Discharge Prescriptions: New Aspirin 325 mg PO BID #28 tab HYDROcodone/APAP 7.5-325MG [Wells 7.5-325] 1 - 2 tab PO Q6H PRN #32 tab PRN Reason: Pain Sennosides [Senokot] 2 tab PO DAILY PRN #60 tablet PRN Reason: Constipation No Action amLODIPine [Norvasc] 10 mg PO DAILY Atorvastatin [Lipitor] 10 mg PO DAILY Venlafaxine HCl [Effexor] 75 mg PO DAILY Metoprolol Succinate [Toprol XL] 100 mg PO DAILY Ibuprofen [Motrin] 800 mg PO Q8H PRN PRN Reason: Pain Pantoprazole [Protonix] 40 mg PO DAILY Fenofibrate Nanocrystallized [Fenofibrate] 145 mg PO DAILY HYDROcodone/APAP 7.5-325MG [Wells 7.5-325] 1 - 2 tab PO Q6H PRN #32 tab PRN Reason: Pain Fluocinonide 0.05% Solution 1 applic TOPICAL DAILY PRN PRN Reason: DRY SCALP Potassium Gluconate 99 mg PO DAILY Discharge Medication List Atorvastatin [Lipitor] 10 mg PO DAILY 12/29/19 [History] Ibuprofen [Motrin] 800 mg PO Q8H PRN 12/29/19 [History] Metoprolol Succinate [Toprol XL] 100 mg PO DAILY 12/29/19 [History] Pantoprazole [Protonix] 40 mg PO DAILY 12/29/19 [History] Venlafaxine HCl [Effexor] 75 mg PO DAILY 12/29/19 [History] amLODIPine [Norvasc] 10 mg PO DAILY 12/29/19 [History] Fenofibrate Nanocrystallized [Fenofibrate] 145 mg PO DAILY 01/31/20 [History] HYDROcodone/APAP 7.5-325MG [Wells 7.5-325] 1 - 2 tab PO Q6H PRN #32 tab 03/13/20 [Rx] Fluocinonide 0.05% Solution 1 applic TOPICAL DAILY PRN 04/26/20 [History] Potassium Gluconate 99 mg PO DAILY 04/26/20 [History] Aspirin 325 mg PO BID #28 tab 04/30/20 [Rx] HYDROcodone/APAP 7.5-325MG [Wells 7.5-325] 1 - 2 tab PO Q6H PRN #32 tab 04/30/20 [Rx] Sennosides [Senokot] 2 tab PO DAILY PRN #60 tablet 04/30/20 [Rx] Follow up Appointment(s)/Referral(s): Bimal Saldaña DO [Family Provider] - 05/10/20 2:00 pm Mg Barger DO [Primary Care Provider] - 05/07/20 8:30 am (Please bring you ID and insurance card(s) with you to this appointment the office needs to get your information updated Also please wear a mask) Patient Instructions/Handouts: Hip Abduction Pillow (DC) Activity/Diet/Wound Care/Special Instructions: Please wear abductor brace at all times, even at night when sleeping. Do not bend the left knee. Keep the left leg straight. Please take medications as prescribed. Dressing to stay on for 10 days. May shower with dressing on. Please follow up with [facility] and call with any questions or concerns, . Discharge Disposition: HOME WITH HOME HEALTH SERVICES
== END 2020-04-30 11:45 | disposition home or self-care (01) | DRG 468 ==
LOC: OR 12:37 → 4SSUR 14:47
PROVIDERS: ADMIT Orthopaedic Surgery; ATTEND Orthopaedic Surgery
PROC: 0SWB0JZ Revision of Synthetic Substitute in Left Hip Joint, Open Approach (ICD-10-PCS; principal; 2020-04-29 08:50)
DX: T84.021A Dislocation of internal left hip prosthesis, initial encounter (principal); Y79.2 Prosthetic and other implants, materials and accessory orthopedic devices associated with adverse incidents; K21.9 Gastro-esophageal reflux disease without esophagitis; F17.200 Nicotine dependence, unspecified, uncomplicated; I10 Essential (primary) hypertension; R00.0 Tachycardia, unspecified; R09.02 Hypoxemia; J44.9 Chronic obstructive pulmonary disease, unspecified; Z79.899 Other long term (current) drug therapy; Z80.8 Family history of malignant neoplasm of other organs or systems; Z98.891 History of uterine scar from previous surgery; Z98.890 Other specified postprocedural states
CPT/HCPCS: 73501; 73502; 80053; 80320; 85025; 85610; 85730; 93005; 96361; 96372; 96374; 99285